=== PATIENT | male | born 1965 | race Caucasian/White ===

== ENCOUNTER → 2016-12-05 | Outpatient (CLI) | payer BC ==
[~2016-12-05] MED LIST: CETI-115 PO; CITA40TA6 PO; GABA-354 PO; HYDR25TA PO; IOHEXOL 300 MG/ML 100ml INJECTION ONE; METO25TA6 PO; NORMAL SALINE 100 ML ONE; ONDA4TAB4 PO; SALINE FLUSH 10ml SYRINGE ONE; TOPI25TA37 PO
--- NOTE | 2016-12-05 15:32 | DI ---
Indication: ITS.REASON: R19.00 Intra-abdominal and pelvic swelling, mass and lump, unspec PROCEDURE: CT ABD/PELVIS W/CONTRAST ONLY: Encounter: Initial Comparison: Renal CT dated March 02, 2016 Technique: Axial CT images were performed through the abdomen and pelvis after the administration of intravenous contrast. Coronal and sagittal two-dimensional reformats. Automated Exposure Control and Iterative Reconstruction dose reducing techniques were utilized. Contrast: Omnipaque 300 100 mL Findings: The lung bases show areas of atelectasis bilaterally. The liver appears normal. No bile duct dilatation. The gallbladder, spleen, pancreas and adrenal glands are within normal limits. The kidneys are normal. No abdominal or pelvic lymphadenopathy. The bladder is normal. Prostate and rectum are within normal limits. No free fluid or free air. Small and large bowel loops are normal. The appendix is normal. There is a rounded smoothly marginated low-attenuation lesion seen in the fundus of the stomach along the lesser curvature measuring 4 cm in diameter extending to the level of the GE junction. This has circumscribed margins and measures approximately 55 Hounsfield units in density. Remainder of the stomach appears thin walled and normal. Bone windows are normal for age. Impression: 4 cm smoothly marginated mass within the fundus of the stomach near the GE junction. This is consistent with a submucosal mass. Leading differential considerations are leiomyoma, GIST tumor and schwannoma. Further evaluation with endoscopic ultrasound may help to differentiate among the submucosal tumor possibilities. .
== END ==
LOC: IMA 13:05
PROVIDERS: ATTEND Surgery
DX: K31.89 Other diseases of stomach and duodenum (principal)
CPT/HCPCS: 74177; J7050; Q9967

== ENCOUNTER → 2017-01-26 | Outpatient (CLI) | payer BC ==
[~2017-01-26] MED LIST changes: -IOHEXOL 300 MG/ML 100ml INJECTION ONE; +IOHEXOL 300 MG/ML 75ml INJECTION ONE
--- NOTE | 2017-01-26 16:14 | DI ---
Indication: ITS.REASON: R51 GOMEZ; R19.00 Intra-abdominal and pelvic swelling, mass and lump CT CHEST W/CONTRAST: Comparison: None Technique: Patient scanned after 75 cc Omni 300 intravenous contrast utilized. Dose reduction imaging technologies used. Reformatted sagittal and coronal images are provided. Findings: No acute findings noted in the base of the neck. Imaging into the chest shows no pathologic adenopathy in the axillary, or mediastinal or hilar regions. The heart size is within normal limits. Imaging the upper abdomen showed no acute findings. Pulmonary parenchyma showed no focal parenchymal consolidations masses or effusions. Reformatted imaging of the thoracic spine shows no fractures or malalignments. Impression: 1. No acute cardiopulmonary findings. .
--- NOTE | 2017-01-31 09:00 | DI ---
Indication: ITS.REASON: R51 GOMEZ; R19.00 Intra-abdominal and pelvic swelling, mass and lump PROCEDURE: CT HEAD W/WO CONTRAST: Comparison: Brain MRI dated October 09, 2016 Technique: Axial CT images through the head were performed without and with IV contrast. Iterative Reconstruction dose reducing technique was utilized. Contrast: Omnipaque 300 75 mL FINDINGS: The ventricles are of normal size, shape, and contour for the patient's age. The brainstem, cerebellum, and cerebral hemispheres have a normal morphology and CT attenuation. No hemorrhage, mass effect, mass lesions, or edema is evident. No areas of abnormal enhancement are seen. The visualized portions of the skull base, sinuses, and calvarium demonstrate no abnormality. IMPRESSION: Unremarkable head CT for the patient's age, both before and after contrast. No evidence of intracranial metastatic disease. .
== END ==
LOC: IMA 12:07
PROVIDERS: ATTEND Internal Medicine Hematology & Oncology
DX: R19.00 Intra-abdominal and pelvic swelling, mass and lump, unspecified site (principal); R51 Headache
CPT/HCPCS: 70470; 71260; J7050; Q9967

== ENCOUNTER 2017-06-12 15:19 | Inpatient (IN) ==
[2017-06-12] MEDS ORDERED: HYDROMORPHONE 2 MG/ML INJECTION IVP ONE (21:18)
[2017-06-12] MEDS ORDERED: ONDANSETRON 4 MG/2 ML INJECTION IVP PRN (21:27)
[2017-06-12] MEDS: HYDROMORPHONE 2 MG/ML INJECTION IVP SCH ×2 (22:28→23:48)
[2017-06-12] MEDS: NS 1,000 ML IV SCH (22:37)
--- NOTE | 2017-06-13 01:32 | History & Physical Report ---
<Naveen Luz Terry - Last Filed: 06/13/17 01:28> History of Present Illness Date: 06/13/17 Chief complaint: right flank pain HPI: This is a 51y/o male with a history of chronic ureterolithiasis. The patient has had previous stones on his left side. More recently he had onset of abd pain and right flank pain. He has had ongoing CKD and had been admitted x 2 in his local hospital to manage his pain and to hopefully resolve his current stone problem. The patient had an USwhich demonstrated hydronephosis on the right without obvious stone. Because of ongoing pain and no resolution of his problem it was thought best to do a CT of his abdome to better understand. [facility] does not have a CT capability. Contact was made with [facility] and it was confrimed that the urology was available. They recommended a CTurogram with adn without iv contrast with delayed imaging. Currently the patient's cr is 1.8 and is not a candidate for iv contrast . WE will proceed with non contrast CT (CT renal stone protocol) and make further recommendations per urology. patient is npo in case there will be a procedure Review of Systems Review of systems: no headache, no change in vision, no sore throat, no neck pain, no chest pain, no cough, no congestion, no fever, chills or sweats, right sided abd/flank pain with nasuea, and dry heaves, patient had normal bowel movements and noblood in urine or stool. no skin rashed, no focal neuro complaints. 12 point ROS otherwise neg except for outlined above. PFSH Patient Stated Medical History Migraine Yes Hypertension hx of high bp prior to losing 50 pounds Sleep Apnea Yes Gastroesophageal Reflux Yes Disease Hx Urinary Tract Infection Yes Other Yes: skin cancer removed x3 Surgical History: cholecystectomy, gastric partial resection for tumor withesophageal reattachment, vasectomy skin cancer resection face x 3 Family History: brother with PTSD< COPD, mother DM, HTN, father HtN, COPPD - Social History Smoking status: Never smoker Substance use type: does not use Alcohol intake frequency: a few times a month Last drink: unknown Housing: house Household members: spouse, children Current occupational status: employed Medications Home Medications Medication Instructions Recorded Confirmed Type Cetirizine HCl [Zyrtec] 1 tab PO DAILY 06/12/17 06/12/17 History Dronabinol [Marinol] 5 mg PO BID 06/12/17 06/12/17 History Ferrous Sulfate [Ferrous Sulfate] 1 tab PO DAILY 06/12/17 06/12/17 History Gabapentin 2 cap PO TID 06/12/17 06/12/17 History Indomethacin 50 mg PO DAILY 06/12/17 06/12/17 History Megestrol Acetate [Megestrol 5 ml PO DAILY 06/12/17 06/12/17 History Acetate] Meloxicam [Mobic] 15 mg PO DAILY 06/12/17 06/12/17 History Mirtazapine [Remeron] 15 mg PO HS 06/12/17 06/12/17 History Multivitamin with Minerals [Men's 1 each PO DAILY 06/12/17 06/12/17 History One Daily] [place]-3 Fatty Acids/Fish Oil [Fish 1 each PO BID 06/12/17 06/12/17 History Oil 1,200 mg Softgel] Ondansetron Tab [Zofran Po] 4 mg PO TID 06/12/17 06/12/17 History Pantoprazole Tab [Protonix Tab] 1 tab PO ACB 06/12/17 06/12/17 History Potassium Chloride [K-Dur] 1 tab PO BID 06/12/17 06/12/17 History Sertraline HCl [Zoloft] 50 mg PO DAILY 06/12/17 06/12/17 History Sulfamethoxazole/Trimethoprim 2 each PO BID 06/12/17 06/12/17 History [Bactrim 400-80 mg Tablet] Topiramate [Topamax] 100 mg PO DAILY 06/12/17 06/12/17 History Allergies Allergy/AdvReac Type Severity Reaction Status Date / Time dog dander Allergy Verified 06/12/17 21:23 pollen extracts Allergy Verified 06/12/17 21:23 Exam Vital Signs: Temperature 97.8 F 06/12/17 23:41 Pulse Rate 60 06/12/17 23:41 Respiratory Rate 18 06/12/17 23:41 Blood Pressure 161/95 H 06/12/17 23:41 Pulse Oximetry 99 06/12/17 23:41 Height/Weight/BMI: Height 1.83 m Weight 97.4 kg Body Mass Index 29.1 - Constitutional Present: mild distress, well nourished, well developed, obese, cooperative - Routine HEENT Exam Head: Present: normocephalic, atraumatic Eye: Present: EOMI ENT: Present: mucous membranes dry - Routine Neck Exam Present: supple, full ROM - Routine Cardiovascular Exam Present: no murmur - Routine Abdominal Exam Present: soft Comments: mild tender to palpation per nursing right sided. bowel sounds are present - Routine Extremities Exam Present: no edema, full ROM - Routine Back/Spine/Pelvis Exam Back/Spine: Present: full ROM - Routine Skin Exam Present: intact - Routine Neurological Exam Present: alert - Routine Psychiatric Exam Present: normal affect Results - Labs CBC & Chem 7: 06/12/17 21:17 06/12/17 21:17 Labs: reviewed and appreciated Assessment and Plan (1) Ureterolithiasis Current visit: Yes Status: Acute 06/13/17 01:36 presumed ureterolithiasis acute POA: recurrent. US demosntrates obstructive uropathy. patients renal function worsening. npo, ivf, iv pain meds, repeat labs in the am. renal function would preclude CT contrast ureterograms. Will do non contrast CT to eval for stone or other obstructing processes Urology aware of patient and will see today (2) SATISH (acute kidney injury) Current visit: Yes Status: Acute 06/13/17 01:38 it will be assumed that the patient's current Cr reflects worsening status. ivf , repeat in the am. with possibility of obstructive uropathy this is concerning for a cause of this. DVT Prophylaxis: SCD's GI Prophylaxis: Protonix Hospital Course Summary Disclaimer: The visit summary below is not to be considered part of the above Progress Note. <Olimpia Maynard Last Filed: 06/13/17 15:26> History of Present Illness Date: 06/13/17 [facility] Patient Stated Medical History Migraine Yes Hypertension hx of high bp prior to losing 50 pounds Sleep Apnea Yes Gastroesophageal Reflux Yes Disease Hx Urinary Tract Infection Yes Other Yes: skin cancer removed x3 Exam Vital Signs: Temperature 97.8 F 06/13/17 11:58 Pulse Rate 77 06/13/17 11:58 Respiratory Rate 16 06/13/17 11:58 Blood Pressure 175/100 H 06/13/17 11:58 Pulse Oximetry 96 06/13/17 11:58 Height/Weight/BMI: Height 1.83 m Weight 96.162 kg Body Mass Index 28.7 Results - Labs CBC & Chem 7: 06/13/17 04:26 06/13/17 04:26 Assessment and Plan (1) Ureterolithiasis Current visit: Yes Status: Acute (2) SATISH (acute kidney injury) Current visit: Yes Status: Acute Assessment and Plan: Dr. Luz's note reviewed. Herve interviewed and examined. His provided supplemental history. CC: Flank pain/hydronephrosis HPI: Mr. 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 Since that time oral intake has been poor and his had recurrent hospitalizations for dehydration which is thought to be the cause of his nephrolithiasis. His is unsure if stone analysis is been done on prior hospitalizations. The patient has had 4 recent attacks of nephrolithiasis and has basically been in and out of the hospital spending more time in the hospital and out since March. He was most recently hospitalized on 06/10 in [place] for dehydration and recurrent flank pain with pain in the right flank/ RLQ/and testicle. Microscopic hematuria was noted and renal sonogram demonstrated right-sided hydronephrosis without clear evidence of stone. The patient reports that he did pass some stone fragments but had persistent pain. Was contacted by Dr. Wilson yesterday requesting transferred to [place] to permit CT imaging and urology evaluation. Patient's creatinine prior to transfer was 1.8. Patient's additionally reports that patient has had psychiatric assessment for eating disorder in recent months and that he may taken no more than 4-6 ounces of fluid a day and that efforts to increase fluid intake lead to repetitive dry heaves or vomiting. 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 Luz with additions of chronic vertigo and poor oral intake. Significant weight loss reported over past 6 months. EXAM: General-NAD, monotone voice but responds to questions appropriately HEENT-PERRL, EOMI without nystagmus, conjunctiva clear, sclera anicteric, conjugate gaze, facial structures symmetric, oropharynx clear, neck supple and without adenopathy Lungs-respirations nonlabored, good airflow, breath sounds clear Cardiac-regular rhythm, S1-S2 Abd-soft, nontender except to deep palpation in the right lower quadrant, no guarding, bowel sounds diminished Ext-without edema Skin-without rash or evidence of wounds Neuro-cranial nerves 3-12 intact, sensation intact 4 extremities, MAEW Psych-flat affect DATA: Hemoglobin 10.1, creatinine 1.8 on admission, 1.7 today, bilirubin 1.5, remainder of liver enzymes unremarkable. Renal CT without contrast reviewed by myself revealing fatty infiltration in the liver, postoperative changes in the stomach, no abnormalities of the left kidney, mild/mod right-sided hydronephrosis and a 3 mm obstructing stone in the distal right ureter A/P: Recurrent nephrolithiasis Right UVJ stone Acute kidney injury Right hydronephrosis Depression Recurrent dehydration Anorexia Hypertension Normocytic anemia GERD History GIST tumor Continue IV fluids, pain management, and antiemetics. Case discussed with Dr. Mao. Stone is small and should pass spontaneously however surgery is tentatively scheduled tomorrow if stone does not pass given chronicity of patient's current symptoms. Continue straining urine-if stone retrieved will sent for stone analysis in the event medication can be utilized to prevent recurrent stones. Bigger issue is prevention of recurrent stones which have evolved since surgery in March. Increased fluid intake is needed but patient finds it impossible to maintain fluid intake currently. Further psychiatric consultation discussed or alternately surgical consultation to determine if he has a candidate for G-tube or J-tube placement. The patient and his considering options. Continue current antidepressant regimen. Patient reports he has not been using Megace or Marinol due to intolerance of medications. I've recommended that he discontinue meloxicam as he is taking indomethacin daily. Based on medication review it appears patient is using most medications inconsistently and that he is also taking a fiber supplement intermittently, Carafate 4 times a day, and Reglan 4 times a day for nausea. Hospital Course Summary Disclaimer: The visit summary below is not to be considered part of the above Progress Note.
[2017-06-13] MEDS: HYDROMORPHONE 2 MG/ML INJECTION IVP SCH ×3 (01:37→05:51)
[2017-06-13] MEDS: HYDROMORPHONE 2 MG/ML INJECTION IVP PRN ×5 (08:08→22:16)
[2017-06-13] MEDS: NS 1,000 ML IV SCH ×2 (08:54→19:08)
[2017-06-13 11:00] VITALS: BMI 28.7
--- NOTE | 2017-06-13 11:17 | CT Scan Report ---
Indication: hematuria PROCEDURE: CT renal wo con (stone madelaine): Encounter: Initial Comparison: None Technique: Axial CT images were performed through the abdomen and pelvis without intravenous contrast. Coronal and sagittal two-dimensional reformats. Automated Exposure Control and Iterative Reconstruction dose reducing techniques were utilized. Findings: Trace left and small right pleural effusions. The unenhanced contours of the liver show fatty infiltration. There is postoperative change in the area of the stomach with areas of induration and fat necrosis seen in the central mesentery and omentum that could be chronic. Recommend correlation with date of patient's prior surgery. The spleen with accessory splenules is unremarkable. The pancreas and adrenal glands are within normal limits. Left kidney is normal. No left-sided renal or ureteral stone. Right kidney has moderate hydronephrosis and mild hydroureter due to an obstructing 3 mm stone in the intramural portion of the ureter at the bladder. Bladder is otherwise normal. Prostate and rectum are unremarkable. No free fluid or evidence of a bowel obstruction. Mild left colonic diverticulosis without diverticulitis. The appendix is normal in a retrocecal location. Bone windows are normal for age. Impression: 1. Obstructing 3 mm right distal ureteral stone. 2. Small pleural effusions. .
--- NOTE | 2017-06-13 12:50 | Urology Consult Note ---
Urology HPI - Data of Consult Consult date: 06/13/17 Requesting Physician: Olimpia Maynard MD - Consult Narrative Reason for consult: R ureteral stone History of present illness: 51M h/o R flank pain radiating to his R testicle that started 20 days ago. This has required multiple visits to the ER. He was admitted to a hospital in [place] for pain control and transferred last night to [facility]. CT done showed a 3mm R UVJ stone. Of note, melissa has a long h/o kidney stones. Did not require surgery in the past. 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 Review of Systems All systems: reviewed and no additional remarkable complaints except as stated PFSH Patient Stated Medical History Migraine Yes Hypertension hx of high bp prior to losing 50 pounds Sleep Apnea Yes Gastroesophageal Reflux Yes Disease Hx Urinary Tract Infection Yes Other Yes: skin cancer removed x3 Surgical History: cholecystectomy, gastric partial resection for tumor withesophageal reattachment, vasectomy skin cancer resection face x 3 - Social History Smoking status: Never smoker Medications Home Medications Medication Instructions Recorded Confirmed Type Cetirizine HCl [Zyrtec] 1 tab PO DAILY 06/12/17 06/12/17 History Dronabinol [Marinol] 5 mg PO BID 06/12/17 06/12/17 History Ferrous Sulfate [Ferrous Sulfate] 1 tab PO DAILY 06/12/17 06/12/17 History Gabapentin 2 cap PO TID 06/12/17 06/12/17 History Indomethacin 50 mg PO DAILY 06/12/17 06/12/17 History Megestrol Acetate [Megestrol 5 ml PO DAILY 06/12/17 06/12/17 History Acetate] Meloxicam [Mobic] 15 mg PO DAILY 06/12/17 06/12/17 History Mirtazapine [Remeron] 15 mg PO HS 06/12/17 06/12/17 History Multivitamin with Minerals [Men's 1 each PO DAILY 06/12/17 06/12/17 History One Daily] [place]-3 Fatty Acids/Fish Oil [Fish 1 each PO BID 06/12/17 06/12/17 History Oil 1,200 mg Softgel] Ondansetron Tab [Zofran Po] 4 mg PO TID 06/12/17 06/12/17 History Pantoprazole Tab [Protonix Tab] 1 tab PO ACB 06/12/17 06/12/17 History Potassium Chloride [K-Dur] 1 tab PO BID 06/12/17 06/12/17 History Sertraline HCl [Zoloft] 50 mg PO DAILY 06/12/17 06/12/17 History Sulfamethoxazole/Trimethoprim 2 each PO BID 06/12/17 06/12/17 History [Bactrim 400-80 mg Tablet] Topiramate [Topamax] 100 mg PO DAILY 06/12/17 06/12/17 History Allergies Allergy/AdvReac Type Severity Reaction Status Date / Time dog dander Allergy Verified 06/12/17 21:23 pollen extracts Allergy Verified 06/12/17 21:23 Urology Results - Labs CBC & Chem 7: 06/13/17 04:26 06/13/17 04:26 Labs: Short CBC 06/12/17 06/13/17 Range/Units 21:17 04:26 WBC 5.1 4.6 (4.5-11.0) T/MM3 Hgb 10.2 L 10.1 L (13.5-17.5) GM/DL Hct 30.7 L 30.5 L (41-53) % Plt Count 154 153 (130-400) T/MM3 BMP 06/12/17 06/13/17 21:17 04:26 Sodium 144 143 Potassium 3.7 3.9 Chloride 114 H 113 H Carbon Dioxide 19 L 23 BUN 10.0 9.0 Creatinine 1.8 H 1.7 H Glucose 85 80 Calcium 8.2 L 8.3 L Liver Function 06/13/17 Range/Units 04:26 Total Bilirubin 1.50 H (0.20-1.30) MG/DL AST 13 L (17-59) U/L ALT 30 (21-72) U/L Alkaline Phosphatase 89 (38-126) U/L Albumin 2.7 L (3.5-5.0) G/DL Urology Exam Vital signs: Temperature 97.8 F 06/13/17 11:58 Pulse Rate 77 06/13/17 11:58 Respiratory Rate 16 06/13/17 11:58 Blood Pressure 175/100 H 06/13/17 11:58 Pulse Oximetry 96 06/13/17 11:58 - Constitutional no acute distress - HEENT Exam Head: Present: normocephalic Eye: Present: EOMI - Respiratory Exam Absent: respiratory distress - Cardiovascular Exam Present: RRR - Abdominal/Groin Exam Present: soft Groin: Present: tenderness (R CVA tenderness) - Exam Penile: Absent: swelling, erythema, lesions Scrotal: Absent: swelling, tenderness, erythema Assessment and Plan 3mm R UVJ stone Multiple ER visits last 2 weeks. Plan: - d/w patient high chances of spontaneous passage with MET based on size and location of the stone. However, patient has been on MET for 2 weeks and has had multiple visits to the ER for the pain. He elects for surgical intervention. d/ w pt risks of URS including infection, bleeding and ureteral injury. Also explained the need for JJ stent . Patient wishes to proceed. - will schedule R URS + stone basketing tomorrow pm - strain urine. Will cancel case if patient passes the stone. Hospital Course Summary Disclaimer: The visit summary below is not to be considered part of the above Progress Note.
[2017-06-13] MEDS ORDERED: Oxycodone/Apap 10/325 1 TAB PO PRN (15:29)
[2017-06-13] MEDS: MIRTAZAPINE 15 MG TABLET PO SCH (21:35)
[2017-06-13] MEDS: GABAPENTIN 300 MG CAPSULE PO SCH (21:36)
[2017-06-13] MEDS: ONDANSETRON 4 MG TABLET PO SCH (21:36)
[2017-06-13] MEDS: SULFAMETHOXAZOLE/TMP 800 MG/160 MG DS TABLET PO SCH (22:12)
[2017-06-14] MEDS: NS 1,000 ML IV SCH ×3 (05:23→18:00)
[2017-06-14] MEDS: PANTOPRAZOLE 40 MG TABLET PO SCH (05:46)
[2017-06-14] MEDS: MULTI-VITAMIN + MINERAL TABLET PO SCH (09:27)
[2017-06-14] MEDS: SULFAMETHOXAZOLE/TMP 800 MG/160 MG DS TABLET PO SCH (09:27)
[2017-06-14] MEDS: CETIRIZINE 10 MG TABLET PO SCH (09:28)
[2017-06-14] MEDS: HYDROMORPHONE 2 MG/ML INJECTION IVP PRN (09:52)
[2017-06-14] MEDS: ONDANSETRON 4 MG TABLET PO SCH ×3 (09:55→20:54)
[2017-06-14] MEDS: SERTRALINE 50 MG TABLET PO SCH (09:55)
[2017-06-14] MEDS: TOPIRAMATE 100 MG TABLET PO SCH (09:55)
[2017-06-14] MEDS: GABAPENTIN 300 MG CAPSULE PO SCH ×3 (09:55→20:54)
[2017-06-14] MEDS ORDERED: IOHEXOL 300mg/ml 50ml INJECTION ONE (12:36)
[2017-06-14] MEDS ORDERED: LIDOCAINE 2% JELLY (Urojet) 20ml MM ONE ×2 (12:39→13:22)
--- NOTE | 2017-06-14 12:51 | Anesthesia Preoperative Report ---
Anesthesia Preoperative Record - Date and Time Date: 06/14/17 Preoperative Diagnosis: Hydronephrosis Proposed Procedure: Cysto ureteroscopy, stone retrieval NPO Since Date: 06/14/17 NPO Since Time: 00:00 Allergies/Adverse Reactions: Allergies Allergy/AdvReac Type Severity Reaction Status Date / Time dog dander Allergy Verified 06/12/17 21:23 pollen extracts Allergy Verified 06/12/17 21:23 - Vital Signs Vital Signs: Temperature 98.1 F 06/14/17 12:30 Pulse Rate 58 L 06/14/17 12:30 Respiratory Rate 16 06/14/17 12:30 Blood Pressure 184/97 H 06/14/17 12:30 Pulse Oximetry 99 06/14/17 12:30 Height and Weight: Height 6 ft Weight 96.162 kg Body Mass Index 28.7 - Medications Inpatient Medications: Current Medications Cetirizine HCl (Zyrtec) 10 mg PO DAILY [facility] Last Admin: 06/14/17 09:28 Dose: Not Given Gabapentin (Neurontin) 600 mg PO TID [facility] Last Admin: 06/14/17 09:55 Dose: 600 mg Hydromorphone HCl (Dilaudid) 0.5 - 1 mg IVP Q2H PRN Last Admin: 06/14/17 09:52 Dose: 0.5 mg Sodium Chloride (Normal Saline) 1,000 mls @ 100 mls/hr IV .Q10H [facility] Last Admin: 06/14/17 05:23 Dose: 100 mls/hr Mirtazapine (Remeron) 15 mg PO HS [facility] Last Admin: 06/13/17 21:35 Dose: 15 mg Multivitamins/Minerals (Therapeutic - M) 1 tab PO DAILY [facility] Last Admin: 06/14/17 09:27 Dose: Not Given Ondansetron HCl (Zofran) 4 mg IVP Q6H PRN PRN Reason: Nausea &/or vomiting Ondansetron HCl (Zofran Po) 4 mg PO TID [facility] Last Admin: 06/14/17 09:55 Dose: 4 mg Oxycodone/Acetaminophen (Percocet 10/325) 1 tab PO Q4H PRN PRN Reason: Pain Last Admin: 06/13/17 15:34 Dose: 1 tab Pantoprazole Sodium (Protonix Tab) 40 mg PO ACB [facility] Last Admin: 06/14/17 05:46 Dose: Not Given Sertraline HCl (Zoloft) 50 mg PO DAILY [facility] Last Admin: 06/14/17 09:55 Dose: 50 mg Topiramate (Topamax) 100 mg PO DAILY [facility] Last Admin: 06/14/17 09:55 Dose: 100 mg Trimethoprim/Sulfamethoxazole (Bactrim Ds) 1 tab PO BID [facility] Last Admin: 06/14/17 09:27 Dose: Not Given Home Medications: Home Medications Medication Instructions Recorded Confirmed Type Cetirizine HCl [Zyrtec] 1 tab PO HS #0 tab 11/27/16 History Gabapentin 1 tab PO DAILY #0 cap 11/27/16 History Metoprolol Tartrate 1 tab PO BID #60 11/27/16 History Ondansetron HCl [Zofran] 4 mg PO Q6H PRN #0 tab 11/27/16 History Topiramate [Topamax] 25 mg PO DAILY #0 tab 11/27/16 History hydroCHLOROthiazide 1 tab PO BID #0 tab 11/27/16 History [Hydrochlorothiazide] Citalopram Hydrobromide 60 tab PO DAILY #0 tab 11/28/16 History [Citalopram HBr] Cetirizine HCl [Zyrtec] 1 tab PO DAILY 06/12/17 06/12/17 History Dronabinol [Marinol] 5 mg PO BID 06/12/17 06/12/17 History Ferrous Sulfate [Ferrous Sulfate] 1 tab PO DAILY 06/12/17 06/12/17 History Gabapentin 2 cap PO TID 06/12/17 06/12/17 History Indomethacin 50 mg PO DAILY 06/12/17 06/12/17 History Megestrol Acetate [Megestrol 5 ml PO DAILY 06/12/17 06/12/17 History Acetate] Meloxicam [Mobic] 15 mg PO DAILY 06/12/17 06/12/17 History Mirtazapine [Remeron] 15 mg PO HS 06/12/17 06/12/17 History Multivitamin with Minerals [Men's 1 each PO DAILY 06/12/17 06/12/17 History One Daily] [place]-3 Fatty Acids/Fish Oil [Fish 1 each PO BID 06/12/17 06/12/17 History Oil 1,200 mg Softgel] Ondansetron Tab [Zofran Po] 4 mg PO TID 06/12/17 06/12/17 History Pantoprazole Tab [Protonix Tab] 1 tab PO ACB 06/12/17 06/12/17 History Potassium Chloride [K-Dur] 1 tab PO BID 06/12/17 06/12/17 History Sertraline HCl [Zoloft] 50 mg PO DAILY 06/12/17 06/12/17 History Sulfamethoxazole/Trimethoprim 2 each PO BID 06/12/17 06/12/17 History [Bactrim 400-80 mg Tablet] Topiramate [Topamax] 100 mg PO DAILY 06/12/17 06/12/17 History Is Patient on Beta Gautam?: Yes - Medical History Respiratory: DENIES: Asthma, Bronchitis, Chronic Obstructive Pulmonary Disease (COPD), Dyspnea, Orthopnea, Pulmonary Embolism, Pneumonia, Upper Respiratory Infection, Pulmonary Edema, Sleep Apnea, Tuberculosis, Other Cardiovascular: Reports: Hypertension Gastrointestional: Reports: Gastroesophageal Reflux Disease (poorly controlled) Neuro/Musculoskeletal: Reports: Depression, Muscle Weakness, Paresthesia (loss of sensation to back of head. ), Other (mood/personality changes after last surgery. vertigo) Renal/Endocrine: Reports: Weight Loss, Other (severe anorexia) Other History: Reports: Anesthesia Reactions (questionable mood/personality changes after last anesthetic) - Surgical History GI Surgery/Treatments: Reports: Other (tumor on stomach removed 03/22/16) Reproductive Surgery/Treatment: Reports: Vasectomy Anesthesia Reactions: Other (see above) - Social History Smoking Status: Never smoker Substance Use Type: does not use - Pertinent Findings Laboratory: CBC and BMP 06/13/17 04:26 06/14/17 10:06 BMP 06/14/17 10:06 Sodium 143 Potassium 4.0 Chloride 113 H Carbon Dioxide 22 BUN 9.0 Creatinine 1.4 D Glucose 82 Calcium 8.6 Liver Function 06/14/17 Range/Units 10:06 Albumin 2.9 L (3.5-5.0) G/DL Urine 06/14/17 Range/Units 10:58 Urine Color Yellow (YELLOW) Urine Clarity Sl cloudy Urine pH 6.0 (5.0-8.0) Ur Specific [place] 1.010 L (1.015-1.025) Urine Protein Negative (NEGATIVE) Urine Glucose (UA) Negative (NEGATIVE) EKG: Sinus Rhythm - Physical Exam Respiratory Exam: Present: lungs clear, bilateral breath sounds equal Cardiovascular Exam: Present: regular rate and rhythm, no murmur - Airway Assessment Mallampati Score: III TMD: 3 Fingerbreadths Neck Extension: fair Overall Assessment: may be difficult intubation (small mouth opening. thick neck ) - ASA ASA Score: 3 - Plan Anesthesia: General TIVA - Discussion Discussion: Discussed risks/options/alternatives of anesthesia and questions answered. Patient consents. Nursing pain assessment noted. Present for Discussion: family member Attestation Statement: Prior to the delivery of any anesthetic medication, I examined the patient, developed the plan, obtained the patient's consent and discussed the risk and benefits of the procedure with the patient/guardian. - Additional Information Seen by Anesthesia: Yes
[2017-06-14] MEDS ORDERED: CEFAZOLIN 1 G INJECTION IVP ONE (13:22)
[2017-06-14] MEDS ORDERED: IOHEXOL 300mg/ml 50ml INJECTION OPSITE ONE (13:22)
[2017-06-14] MEDS ORDERED: CEFAZOLIN 1 G INJECTION ONE (13:28)
[2017-06-14] MEDS ORDERED: KETOROLAC 30 MG/ML INJECTION ONE (13:31)
[2017-06-14] MEDS ORDERED: ONDANSETRON 4 MG/2 ML INJECTION ONE (13:35)
[2017-06-14] MEDS ORDERED: DiphenhydrAMINE 50 MG/ML INJECTION ONE (13:35)
[2017-06-14] MEDS ORDERED: PROPOFOL 20 ML ONE (13:36)
[2017-06-14] MEDS ORDERED: ROCURONIUM 50 MG/5 ML INJECTION IVP ONE (13:36)
[2017-06-14] MEDS ORDERED: PROPOFOL 500 MG/50 ML VIAL IV ONE (13:36)
[2017-06-14] MEDS ORDERED: SUCCINYLCHOLINE 20mg/mL 10mL INJECTION ONE (13:36)
--- NOTE | 2017-06-14 14:03 | Anesthesia Postoperative Note ---
- Date and Time Date: 06/14/17 Time: 14:02 - Status Patient Participated in Evaluation: Patient Participated in Person Vital Signs: Temperature 98.5 F 06/14/17 13:43 Pulse Rate 74 06/14/17 13:50 Respiratory Rate 16 06/14/17 13:50 Blood Pressure 140/92 H 06/14/17 13:50 Pulse Oximetry 97 06/14/17 13:50 Respiratory Function: Airway Patent Cardiovascular Function: Regular Pulse EKG: Sinus Rhythm Mental Status: Alert and Oriented Hydration: Taking PO Fluids Complications During Recover: None Apparent - Follow-Up Instructions Instructions: Per Surgeon
--- NOTE | 2017-06-14 14:13 | Remote Fluorsocopy Report ---
Indication: RIGHT RETROGRADE PROCEDURE: RF retrograde pyelogram RT: Encounter: Initial Comparison: None Findings: Three fluoroscopic spot images are submitted for interpretation. Images show retrograde injection of contrast into the right ureter via a cystoscope. There is minimal opacification of the right renal calyces. Impression: Fluoroscopy as above. Fluoroscopy time is 9.2 seconds. Fluoroscopy dose is 256.4 mRad. .
--- NOTE | 2017-06-14 15:42 | Progress Note ---
Subjective: Herve was seen prior to surgery. He reported continued pain in his right lower quadrant/right flank and hematuria. He is currently nothing by mouth but reported no difficulty with food intake yesterday. Nursing report virtually no intake of liquids with only 150 mL liquids taken orally. She reports some minor lightheadedness when he is up to the bathroom and nausea without vomiting but denied dyspnea. Objective Vital signs: Temperature 97.1 F 06/14/17 14:35 Pulse Rate 57 L 06/14/17 15:17 Respiratory Rate 10 06/14/17 15:17 Blood Pressure 152/92 H 06/14/17 15:17 Pulse Oximetry 97 06/14/17 15:17 I/O 3150/2325 EXAM General-NAD, alert HEENT-conjunctiva clear Lungs-respirations nonlabored, breath sounds clear, good airflow Cardiac-regular rhythm Abd-abdomen soft with minimal tenderness on deep palpation right lower quadrant , bowel sounds present Ext-without edema Neuro-MAEW Psych-flat affect - Height/Weight/BMI: Height 1.83 m Weight 95 kg Body Mass Index 28.7 Results - Labs CBC & Chem 7: 06/13/17 04:26 06/14/17 10:06 Labs: Magnesium 1.4, phosphorus 3.2, albumin 2.9 UA specific gravity 1.010, +3 blood, 30-50 RBC, no WBC Assessment and Plan (1) Ureterolithiasis Current visit: Yes Status: Acute (2) SATISH (acute kidney injury) Current visit: Yes Status: Acute DVT Prophylaxis: SCD's Resuscitation Status: Full Code Assessment and Plan: Assessment: Recurrent nephrolithiasis Right UVJ stone Acute kidney injury Right hydronephrosis Depression Recurrent dehydration Anorexia Hypertension Normocytic anemia GERD History GIST tumor Plan: Continue IV fluids. Patient to the operating room for stone retrieval today and possible stent placement. Again discussed need to improve oral intake of liquids to minimize risk of recurrent stones. Initially patient declined interventions but later his requested surgical consultation. Discussed with Dr. Garcias will see patient in consultation to determine if consideration of feeding tube of some form is appropriate consideration. Patient again declined psychiatric consultation. No suggestion of urine infection. Blood pressure variable, would likely benefit from addition of antihypertensive at low dose. Will discuss with patient and -given intolerance of oral medications I'm reluctant to add to patient's pill burden currently. Discussed with Dr. Wilson-reported recent treatment with Bactrim and Diflucan empirically-does not need to continue either. He agreed with surgical consultation and felt patient would benefit from further psychiatric evaluation if agreeable. Would like PICC line to remain in at discharge. Retrograde images of the right ureter reviewed by myself-radiology additionally reports poor opacification of the right renal calyx. Call placed to Dr. Dr. Mao. Hospital Course Summary Disclaimer: The visit summary below is not to be considered part of the above Progress Note. Hospital Course: 06/12- Patient transferred from [place] due to persistent pain attributed to nephrolithiasis for CT imaging and urology consultation. Continue IV fluids, pain management, and antiemetics. Case discussed with Dr. Mao. 3 mm distal UVJ stone on CT and should pass spontaneously however surgery is tentatively scheduled tomorrow if stone does not pass given chronicity of patient's current symptoms. Continue straining urine-if stone retrieved will sent for stone analysis in the event medication can be utilized to prevent recurrent stones. Bigger issue is prevention of recurrent stones which have evolved since surgery in March. Increased fluid intake is needed but patient finds it impossible to maintain fluid intake currently. Further psychiatric consultation discussed or alternately surgical consultation to determine if he has a candidate for G-tube or J-tube placement. The patient and his considering options. Continue current antidepressant regimen. Patient reports he has not been using Megace or Marinol due to intolerance of medications. I've recommended that he discontinue meloxicam as he is taking indomethacin daily. Based on medication review it appears patient is using most medications inconsistently and that he is also taking a fiber supplement intermittently, Carafate 4 times a day, and Reglan 4 times a day for nausea. 06/14/17 Continue IV fluids. Patient to the operating room for stone retrieval today and possible stent placement. Again discussed need to improve oral intake of liquids to minimize risk of recurrent stones. Initially patient declined interventions but later his requested surgical consultation. Discussed with Dr. Garcias will see patient in consultation to determine if consideration of feeding tube of some form is appropriate consideration. Patient again declined psychiatric consultation. No suggestion of urine infection. Blood pressure variable, would likely benefit from addition of antihypertensive at low dose. Will discuss with patient and -given intolerance of oral medications I'm reluctant to add to patient's pill burden currently. Discussed with Dr. Wilson-reported recent treatment with Bactrim and Diflucan empirically-does not need to continue either. He agreed with surgical consultation and felt patient would benefit from further psychiatric evaluation if agreeable. Would like PICC line to remain in at discharge. Retrograde images of the right ureter reviewed by myself-radiology additionally reports poor opacification of the right renal calyx. Call placed to Dr. Dr. Mao.
[2017-06-14] MEDS ORDERED: ACETAMINOPHEN 325 MG TABLET PO PRN (20:34)
[2017-06-14] MEDS: MIRTAZAPINE 15 MG TABLET PO SCH (20:54)
[2017-06-15 00:23] VITALS: RESP 16
[2017-06-15] MEDS: NS 1,000 ML IV SCH ×3 (05:01→10:43)
[2017-06-15] MEDS: PANTOPRAZOLE 40 MG TABLET PO SCH (06:08)
[2017-06-15 07:30] VITALS: BP 138/82; PULSE 63; TEMP 97.4; O2SAT 97
--- NOTE | 2017-06-15 07:47 | Consultation ---
DATE OF CONSULTATION 06/14/2017 HISTORY OF PRESENT ILLNESS This patient is 51 years old. This patient underwent an exploratory laparotomy , proximal gastrectomy, distal esophagectomy, truncal vagotomy, Heineke- Mikulicz pyloroplasty and cholecystectomy on 03/22/[address] Nahomy Cuellar at [facility] at [place], [place]. Postoperative diagnosis was proximal gastric tumor. 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 There was no evidence of any malignant transformation. All regional lymph nodes were benign. Pathology report diagnosis on the gallbladder was mild chronic cholecystitis. The patient was hospitalized at [facility] from 03/22/2017 to 03/29/2017. The patient did undergo a Gastrografin upper GI x- ray series on 03/27/2017 during this hospitalization. The imaging study on 07/2017 did show postoperative changes at the stomach with no evidence of any obstruction. The contrast material did pass down into the duodenum without obstruction. The patient was admitted to [facility] on 06/13/2017 for management of a right ureterovesical junction kidney stone which was producing right hydronephrosis and right flank pain. A history was obtained at the time of admission that this patient had been experiencing recurrent nephrolithiasis since the operation in March 2017. The history was obtained at this time that the patient had been experiencing poor oral intake since the March 2017 operation with recurrent hospitalizations for treatment of dehydration. The recurrent dehydration was thought to be the cause for the recurrent nephrolithiasis. There was a history the patient experienced four episodes of nephrolithiasis and had been in and out of the hospital, spending more time in the hospital than out of the hospital since March 2017. The patient had been able to pass all these previous kidney and ureteral stones without an operation. The of the patient did report to Dr. Maynard that the patient had undergone at least two psychiatric assessments in recent months for an eating disorder. The patient had anorexia and poor oral intake. The patient was drinking no more than 4-6 ounces of fluid a day. If the patient would try to increase his fluid intake more than this he would experience repetitive dry heaves and vomiting. Increased oral intake was needed for the patient, but the patient did find it impossible to maintain good fluid intake. Dr. Myanard did discuss options of further psychiatric evaluation with the patient or possible surgical consultation to see if he is a candidate for placement of a feeding tube. Dr. Maynard again discussed the need to improve oral intake of liquids with the patient and his on 06/14/2017. The patient needs to improve his oral intake of liquids to minimize his risk for development of recurrent kidney stones. The of the patient did request surgical consultation. The patient again declined psychiatric consultation. Dr. Maynard did discuss the case with Dr. Alfa Wilson on 06/14/2017. Dr. Alfa Wilson is the primary care physician for the patient. Dr. Wilson agreed with surgical consultation and felt that the patient would benefit from further psychiatric evaluation, if agreeable. The patient states that he has had difficulty maintaining good oral intake since his operation in March 2017. He states that he believes that his intake of solid foods has been gradually and steadily improving since the operation in March 2017, but states that his intake of oral liquids is not improving. He states that he just does not feel like drinking anything. He states that he experiences a burning sensation at the abdomen when he does drink. He believes that his intake of solid foods is improving but states he has had difficulty improving his intake of liquids. The patient states that he has been hospitalized at [facility] three times since his original hospitalization in March 2017. Review of records from [facility] shows that the patient did undergo an upper GI x-ray series with small bowel follow-through on 04/14/2017 which showed no obstructive process. The Gastrografin which the patient swallowed at that time was able to reach the colon in 30 minutes. The patient states he was told at one of these three hospitalizations at [facility] that he had dumping syndrome. The patient states that he was told by Dr. Nahomy Cuellar at one of the subsequent hospitalizations at [facility] that if he was hospitalized there one more time he would have placement of a feeding tube to solve this problem. The patient was hospitalized to the service of Dr. Nahomy Cuellar each of the three times that he was hospitalized at [facility] since the original operation. PAST MEDICAL HISTORY Previous operations and procedures: 1. Vasectomy [address]ally Page at [place], [place]. 2. Removal of skin lesion at face in [address] Galloway at [place], [place]. 3. Esophagogastroduodenoscopy with biopsies and total colonoscopy with polypectomy and biopsies on 11/28/[address] Garcias at [facility] at [place], [place]. The patient did have a positive family history of colon carcinoma. The patient was found to have some colonic diverticulosis at this procedure. The patient did have two tubular adenoma colon polyps removed at total colonoscopy with polypectomy. KEITH test study at esophagogastroduodenoscopy was negative. The patient did appear to have a submucosal mass at the superior aspect of the stomach found at this esophagogastroduodenoscopy procedure. 4. Esophagogastroduodenoscopy with endoscopic ultrasound examination and ultrasound-guided fine needle aspiration biopsy of large submucosal gastric mass on 01/09/[address] Saturnino Sanford at [facility] at [place], [place]. Pathology report diagnosis on the fine needle aspiration biopsy was spindle cells present with immunoprofile consistent with smooth muscle cells. 5. Esophagogastroduodenoscopy with biopsies and tattoo of gastric mass on 02/[address] Rito Han at [facility] at [place], [place]. Postoperative diagnosis was gastric mass. Biopsies of a small gastric polyp were performed. Pathology report diagnosis on the biopsies was benign fundic gland polyp. The margins of the gastric mass were tattooed at proximal, medial and lateral margins. The mass did appear to extend all the way up to the Z- line. 6. Exploratory laparotomy, proximal gastrectomy, distal esophagectomy, truncal vagotomy, Heineke-Mikulicz pyloroplasty and cholecystectomy on 03/22/[address] Nahomy Cuellar at [facility] at [place], [place]. Postoperative diagnosis was proximal gastric tumor. 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 There was no evidence of any malignant transformation. All regional lymph nodes were benign. Pathology report diagnosis on the gallbladder was mild chronic cholecystitis. 7. Cystoscopy with removal of stone from the bladder and right retrograde pyelogram on 06/14/[address] Mao at [facility] at [place], [place]. Postoperative diagnosis was stone in the bladder. PHYSICAL EXAMINATION VITAL SIGNS: Pulse is 65. Respiratory rate is 146/89. Oxygen saturation is 97% on room air. Height is 1.83 meters. Weight is 95 kg. BMI is 28.4 kg/m2. ABDOMEN: The abdomen is soft and nontender. There are no abdominal masses. The patient does have an old vertical midline upper abdominal incision scar. IMAGING DATA This patient did undergo an upper GI x-ray with small bowel follow-through x- ray series on 04/14/2017 at [facility] at [place], [place]. This did not show any obstructive process in the gastrointestinal tract. Gastrografin contrast was able to reach the colon by 30 minutes after administration. The contrast did flow from the stomach into the small bowel loops without any obstructive process visualized. IMPRESSION 1. Status post exploratory laparotomy, proximal gastrectomy, distal esophagectomy, truncal vagotomy, Heineke-Mikulicz pyloroplasty and cholecystectomy on 03/22/2017. 2. Anorexia and poor oral intake since the operation on 03/22/2017. 3. Recurrent dehydration and recurrent nephrolithiasis since 03/22/2017. RECOMMENDATIONS 1. Since the right ureterovesical junction stone problem which led to this hospitalization at [facility] is now resolved, I think the patient could be dismissed from [facility] tomorrow. 2. I can follow up with Dr. Alfa Wilson who is the primary care physician of this patient and Dr. Nahomy Cuellar regarding further management of the anorexia and poor oral intake and try to coordinate care with these two physicians. I think that this is a chronic problem that does not have to be immediately solved during this hospitalization I would like to know what plan Dr. Nahomy Cuellar may already have in place for solving this problem before trying to proceed to solve this on my own. The patient may ultimately need placement of a feeding jejunostomy tube. [facility]
[2017-06-15] MEDS: TOPIRAMATE 100 MG TABLET PO SCH (08:49)
[2017-06-15] MEDS: CETIRIZINE 10 MG TABLET PO SCH (08:49)
[2017-06-15] MEDS: GABAPENTIN 300 MG CAPSULE PO SCH (08:49)
[2017-06-15] MEDS: ONDANSETRON 4 MG TABLET PO SCH (08:50)
[2017-06-15] MEDS: SERTRALINE 50 MG TABLET PO SCH (08:50)
[2017-06-15] MEDS: MULTI-VITAMIN + MINERAL TABLET PO SCH (08:50)
--- NOTE | 2017-06-15 10:39 | Operative Note ---
DATE OF PROCEDURE 06/14/2017 PREOPERATIVE DIAGNOSIS Right distal ureteral stone. POSTOPERATIVE DIAGNOSIS Stone in the bladder. PROCEDURE PERFORMED 1. Cystoscopy with removal of stone from the bladder. 2. Right retrograde pyelogram. PRIMARY SURGEON Liam Mao MD COMPLICATIONS None DRAINS None SPECIMEN REMOVED Stone for analysis. INDICATIONS FOR THE PROCEDURE This is a 51-year-old male who was admitted to the hospital for a two-week history of severe right flank pain. CT scan showed a 2-3 mm right UVJ stone. Patient was counseled on medical expulsive therapy however, he wished to proceed with intervention due to the fact that he has been having pain for two weeks. RADIOLOGIC FINDINGS Right retrograde pyelogram was negative for filling defects and for hydronephrosis. DESCRIPTION OF THE PROCEDURE Patient was identified in the preoperative holding area. The procedure was explained to him and he agreed to proceed. He was taken back to the operating room where he was placed supine on the operating table. General anesthesia was induced. He was then placed in the dorsal lithotomy position. The genitalia were prepped and draped in the usual fashion. At this time, a formal time-out was done, all the persons in the room were in agreement. I started the procedure by introducing a cystoscope into the bladder. Upon entry to the bladder, I identified the two ureteral orifices that were orthotopic in position. At the level of the right ureteral orifice, I identified a small stone that was already in the bladder. This stone was flushed out of the bladder and sent for analysis. The stone corresponded to the stone that was seen on CT scan before the procedure. At this point, I felt that there was no need for ureteroscopy. I used a 5-Tamazight ureteral catheter to intubate the right ureteral orifice and then shot a right retrograde pyelogram. This showed no filling defects and no significant hydronephrosis, confirming that the patient had no stones in the ureter. At this point, the bladder was emptied and this concluded the procedure. DISPOSITION Patient will be transferred back to his room. The stone will be sent for analysis. [facility]
--- NOTE | 2017-06-15 10:53 | Discharge Instructions ---
Discharge Plan - Med Rec/Dispo Referrals/Follow Up: Alfa Wilosn MD [Physician] - 1 Week Kathi Instructions: Kidney Stones (DC), Dehydration (DC) Prescriptions: New Mirtazapine Solu-Tab [Remeron Solu-Tab] 15 mg PO HS #30 tab Continue Cetirizine HCl [Zyrtec] 1 tab PO HS #0 tab Pantoprazole Tab [Protonix Tab] 1 tab PO ACB Gabapentin 2 cap PO TID Sertraline HCl [Zoloft] 50 mg PO DAILY [place]-3 Fatty Acids/Fish Oil [Fish Oil 1,200 mg Softgel] 1 each PO BID Multivitamin with Minerals [Men's One Daily] 1 each PO DAILY Ferrous Sulfate 1 tab PO DAILY Topiramate [Topamax] 100 mg PO DAILY Potassium Chloride [K-Dur] 1 tab PO BID Dronabinol [Marinol] 5 mg PO BID Indomethacin 50 mg PO DAILY Ondansetron Tab [Zofran Po] 4 mg PO TID Cetirizine HCl [Zyrtec] 1 tab PO DAILY Megestrol Acetate 5 ml PO DAILY Discontinued Ondansetron HCl [Zofran] 4 mg PO Q6H PRN #0 tab PRN Reason: NAUSEA Citalopram Hydrobromide [Citalopram HBr] 60 tab PO DAILY #0 tab Mirtazapine [Remeron] 15 mg PO HS Meloxicam [Mobic] 15 mg PO DAILY Sulfamethoxazole/Trimethoprim [Bactrim 400-80 mg Tablet] 2 each PO BID Topiramate [Topamax] 25 mg PO DAILY #0 tab hydroCHLOROthiazide [Hydrochlorothiazide] 1 tab PO BID #0 tab Metoprolol Tartrate 1 tab PO BID #60 Gabapentin 1 tab PO DAILY #0 cap Discharge Instructions/Outpatient Orders: Final Provider Discharge Instructions Location: Determined By Patient - Disposition 01 Discharged Home, Self-Care
--- NOTE | 2017-06-15 18:05 | Discharge Summary ---
Discharge Information Date of admission: 06/12/17 21:28 Attending Physician: Olimpia Maynard MD Primary care physician: Alfa Wilson M.D. Consults: Liam Mao Reason For Exam: hydronephrosis Aubrey Garcias Reason For Exam: recurrent dehydration - Discharge Diagnosis (1) Ureterolithiasis Status: Acute (2) SATISH (acute kidney injury) Status: Acute - Procedures Procedures: Cystoscopy with removal of stone from the bladder, right retrograde pyelogram on 06/14/17. Right retrograde pyelogram demonstrated no evidence of filling defects at time of procedure. - Laboratory Labs: On admission (06/12/17) white count 5.1, hemoglobin 10.2, bicarbonate 19, creatinine 1.8. Liver enzymes on 06/13 demonstrated slight elevation in bilirubin at 1.5, albumin 2.7 but remainder of liver enzymes were unremarkable. UA with +3 occult blood, 30-50 RBC, no WBC Prealbumin on 06/15 was 10.1. 06/15/17 04:13 06/15/17 04:13 Stone analysis pending at discharge - Radiology Radiology: Renal CT without contrast (stone protocol) on 06/13/17- Trace left and small right pleural effusions. The unenhanced contours of the liver show fatty infiltration. There is postoperative change in the area of the stomach with areas of induration and fat necrosis seen in the central mesentery and omentum that could be chronic. Recommend correlation with date of patient's prior surgery. The spleen with accessory splenules is unremarkable. The pancreas and adrenal glands are within normal limits. Left kidney is normal. No left-sided renal or ureteral stone. Right kidney has moderate hydronephrosis and mild hydroureter due to an obstructing 3 mm stone in the intramural portion of the ureter at the bladder. Bladder is otherwise normal. Prostate and rectum are unremarkable. No free fluid or evidence of a bowel obstruction. Mild left colonic diverticulosis without diverticulitis. The appendix is normal in a retrocecal location. Bone windows are normal for age. Impression: 1. Obstructing 3 mm right distal ureteral stone. 2. Small pleural effusions. History of Present Illness HPI: This is a 51y/o male with a history of chronic ureterolithiasis. The patient has had previous stones on his left side. More recently he had onset of abd pain and right flank pain. He has had ongoing CKD and had been admitted x 2 in his local hospital to manage his pain and to hopefully resolve his current stone problem. The patient had an USwhich demonstrated hydronephosis on the right without obvious stone. Because of ongoing pain and no resolution of his problem it was thought best to do a CT of his abdomen to better understand. [facility] does not have a CT capability. Contact was made with [facility] and it was informed that the urology was available. They recommended a CT urogram with and without iv contrast with delayed imaging. Currently the patient's cr is 1.8 and is not a candidate for iv contrast . We will proceed with non contrast CT (CT renal stone protocol) and make further recommendations per urology. patient is npo in case there will be a procedure Hospital Course This is a general summary of the patient's hospital course. For more details refer to the complete medical record. Hospital course: Assessment: Recurrent nephrolithiasis Right UVJ stone Acute kidney injury Right hydronephrosis Depression Recurrent dehydration Anorexia Hypertension Normocytic anemia GERD History GIST tumor Hospital course: Herve was transferred from [facility] with persistent right flank pain. Imaging demonstrated a right UVJ stone. He was seen in consultation by Dr. Mao and taken to the operating room on 06/14 for stone removal following hydration. Intraoperatively it was found that the stone had passed spontaneously into the bladder and the ureter was without evidence of obstruction by retrograde pyelogram. Pain control improved significantly post procedure and patient was stable for discharge on 06/15. There was evidence of acute kidney injury on admission which improved progressively with further hydration. The patient has had recurrent episodes of dehydration since surgery earlier this summer and after discussion with Dr. Wilson PICC line was left in in the event additional fluids are needed in the near future. Patient was evaluated by Dr. Garcias who initially identified the patient's gastric tumor to determine if he is a candidate for some form of feeding tube to permit enteral hydration as opposed to need for recurrent hospitalizations for hydration and to prevent recurrent nephrolithiasis. Dr. Garcias plans to speak further with the patient's surgeon in [place]. Additionally the patient/ indicated plans to follow-up with further psychiatric evaluation regarding patient's difficulty tolerating oral liquids as he has tolerated solid food better recently but remains intolerant of liquids. On 06/15 the patient was pain-free and tolerating limited oral liquids. He is generally been eating food fairly well. The patient denied dyspnea or nausea. Abdomen was entirely benign and there was no discomfort on palpation in the right lower quadrant. Respirations were nonlabored and breath sounds clear. Blood pressure has improved compared to prior days when it was moderately elevated. Discharge blood pressure 138/82. He stable for discharge at this time. The patient will remain on home medications as in the past with the following exceptions: Bactrim discontinued Meloxicam discontinued (patient on indomethacin) Mirtazapine switched from tablet to solutab to enhance continuous use The patient's reported several medications are being used but did not appear on our admission medication list-patient advised to continue using as in the past. The patient is asked to follow up with Dr. Wilson in one week. Time spent with patient: discharge greater than 30 minutes Discharge Plan - Med Rec/Dispo Referrals/Follow Up: Alfa Wilson MD [Physician] - 1 Week Kathi Instructions: Dehydration (DC), Kidney Stones (DC) Prescriptions: New Mirtazapine Solu-Tab [Remeron Solu-Tab] 15 mg PO HS #30 tab Continue Pantoprazole Tab [Protonix Tab] 1 tab PO ACB Gabapentin 2 cap PO TID Sertraline HCl [Zoloft] 50 mg PO DAILY [place]-3 Fatty Acids/Fish Oil [Fish Oil 1,200 mg Softgel] 1 each PO BID Multivitamin with Minerals [Men's One Daily] 1 each PO DAILY Ferrous Sulfate 1 tab PO DAILY Topiramate [Topamax] 100 mg PO DAILY Potassium Chloride [K-Dur] 1 tab PO BID Dronabinol [Marinol] 5 mg PO BID Indomethacin 50 mg PO DAILY Ondansetron Tab [Zofran Po] 4 mg PO TID Cetirizine HCl [Zyrtec] 1 tab PO DAILY Megestrol Acetate 5 ml PO DAILY Discontinued Ondansetron HCl [Zofran] 4 mg PO Q6H PRN #0 tab PRN Reason: NAUSEA Citalopram Hydrobromide [Citalopram HBr] 60 tab PO DAILY #0 tab Mirtazapine [Remeron] 15 mg PO HS Meloxicam [Mobic] 15 mg PO DAILY Sulfamethoxazole/Trimethoprim [Bactrim 400-80 mg Tablet] 2 each PO BID Topiramate [Topamax] 25 mg PO DAILY #0 tab hydroCHLOROthiazide [Hydrochlorothiazide] 1 tab PO BID #0 tab Metoprolol Tartrate 1 tab PO BID #60 Gabapentin 1 tab PO DAILY #0 cap Discharge Instructions/Outpatient Orders: Final Provider Discharge Instructions Location: Determined By Patient - Disposition 01 Discharged Home, Self-Care
== END 2017-06-15 11:40 | disposition home or self-care (01) | DRG 694 ==
LOC: EDBD → SRG → MERGE 21:28
PROVIDERS: ADMIT Internal Medicine; ATTEND Internal Medicine

== ENCOUNTER 2017-07-11 11:05 | Inpatient (IN) ==
[2017-07-11] MEDS ORDERED: ONDANSETRON 4 MG/2 ML INJECTION IVP ONE (11:21)
[2017-07-11] MEDS ORDERED: NS 1,000 ML IV ONE (11:21)
[2017-07-11] MEDS ORDERED: PROCHLORPERAZINE 10 MG/2 ML INJECTION IVP ONE (11:21)
--- OUTSIDE RECORDS SUMMARY | 2017-07-11 11:24 | External Medical Summary | CCD ---
:1965 Author Name KHRIS URENA Address [address], [place] [id number] Care Team Providers Name Role Phone OANH COFFMAN Attending Physician Unavailable Vital Signs Unknown or Not Available. Allergies Unknown or Not Available. Procedures Unknown or Not Available. History of Immunizations Unknown or Not Available. Problems Unknown or Not Available. Results Unknown or Not Available. Active Medications Unknown or Not Available. Medications Administered During Visit Unknown or Not Available. Encounters Encounter Diagnosis Diagnosis Code Start Date Benign paroxysmal vertigo, [id number] 05/11/2016 bilateral Social History Smoking Status Code Start Date End Date Never smoker [id number] Patient Decision Aids Unknown or Not Available. Discharge Instructions You were admitted to [facility] on 05/11/2016 14:45 with a principal diagnosis of Benign paroxysmal vertigo, bilateral You were discharged from [facility] on 05/25/2016 11:01 Should you have any questions prior to discharge, please contact a member of your healthcare team. If you have left the hospital and have any questions, please contact your primary care physician. Chief Complaint and Reason For Visit Chief Complaint Date of Onset PT Function Status Unknown or Not Available. Plan of Care Unknown or Not Available. Referral/Transition of Care Unknown or Not Available.
--- OUTSIDE RECORDS SUMMARY | 2017-07-11 11:24 | External Medical Summary | Continuity Of Care Document ---
:1965 Author Organization [facility] Address [address] [place] [address] Phone Care Team Providers Name Role Phone DANIEL ESPINO, PETER Attending Provider Unavailable Unavailable Unavailable KAE PARKER DO Consulting Provider GILSON ESPINO, MEE Cervantes Primary Care Provider ADELSO ESPINO, KATERINE Stevens Admitting Provider TJ ESPINO, JUAN CARLOS Neville Consulting Provider Results Lab Results Visit/Account #[id number] (May 11, 2017 5:00pm - May 16, 2017 1:30pm) Test Result Date/Time POCGL POCGL(70-110 MG/DL) 112 MG/DL May 14, 2017 10:03am 103 MG/DL May 15, 2017 4:07am COMPLETE BLOOD COUNT WITH DIFF WHITE BLOOD COUNT(4.0-11.0 10E3/UL) 11.2 10E3/UL May 14, 2017 9:27am RED BLOOD COUNT(4.50-5.90 10E6/UL) 4.15 10E6/UL May 14, 2017 9:27am HEMOGLOBIN(13.5-17.5 G/DL) 12.0 G/DL May 14, 2017 9:27am HEMATOCRIT(41.0-53.0 %) 37.3 % May 14, 2017 9:27am MEAN CORPUSCULAR VOLUME(82.0-100.0 FL) 89.9 FL May 14, 2017 9:27am MEAN CORPUSCULAR HEMOGLOBIN(26.0-34.0 PG) 28.9 PG May 14, 2017 9:27am MEAN CORPUSCULAR HGB CONC(31.5-36.5 G/DL) 32.2 G/DL May 14, 2017 9:27am RED CELL DISTRIBUTION WIDTH(11.5-14.5 %) 13.0 % May 14, 2017 9:27am 777-3: PLATELET COUNT(150-450 10E3/UL) 324 10E3/UL May 14, 2017 9:27am MEAN PLATELET VOLUME(8.2-12.4 FL) 9.8 FL May 14, 2017 9:27am NEUTROPHILS % (AUTO)(40-70 %) 75 % May 14, 2017 9:27am LYMPHOCYTES % (AUTO)(15-45 %) 18 % May 14, 2017 9:27am MONOCYTES % (AUTO)(2-10 %) 6 % May 14, 2017 9:27am EOSINOPHILS % (AUTO)(0-6 %) 1 % May 14, 2017 9:27am BASOPHILS % (AUTO)(0-1 %) 0 % May 14, 2017 9:27am IMMATURE GRANS % (AUTO)(0-0 %) 0 % May 14, 2017 9:27am NUCLEATED RBCS (AUTO)(0-0 %) 0 % May 14, 2017 9:27am NEUTROPHILS # (AUTO)(2.5-7.5 10E3/UL) 8.4 10E3/UL May 14, 2017 9:27am LYMPHOCYTES # (AUTO)(1.0-4.0 10E3/UL) 2.0 10E3/UL May 14, 2017 9:27am MONOCYTES # (AUTO)(0.2-0.8 10E3/UL) 0.6 10E3/UL May 14, 2017 9:27am EOSINOPHILS # (AUTO)(0.0-0.4 10E3/UL) 0.1 10E3/UL May 14, 2017 9:27am BASOPHILS # (AUTO)(0.0-0.2 10E3/UL) 0.0 10E3/UL May 14, 2017 9:27am IMMATURE GRANS # (AUTO)(0.0-0.0 10E3/UL) 0.1 10E3/UL May 14, 2017 9:27am DIFF TYPE AUTOMATED May 14, 2017 9:27am COMPLETE BLOOD COUNT WHITE BLOOD COUNT(4.0-11.0 10E3/UL) 9.3 10E3/UL May 15, 2017 7:53am RED BLOOD COUNT(4.50-5.90 10E6/UL) 3.81 10E6/UL May 15, 2017 7:53am HEMOGLOBIN(13.5-17.5 G/DL) 11.1 G/DL May 15, 2017 7:53am HEMATOCRIT(41.0-53.0 %) 33.9 % May 15, 2017 7:53am MEAN CORPUSCULAR VOLUME(82.0-100.0 FL) 89.0 FL May 15, 2017 7:53am MEAN CORPUSCULAR HEMOGLOBIN(26.0-34.0 PG) 29.1 PG May 15, 2017 7:53am MEAN CORPUSCULAR HGB CONC(31.5-36.5 G/DL) 32.7 G/DL May 15, 2017 7:53am RED CELL DISTRIBUTION WIDTH(11.5-14.5 %) 13.0 % May 15, 2017 7:53am 777-3: PLATELET COUNT(150-450 10E3/UL) 268 10E3/UL May 15, 2017 7:53am MEAN PLATELET VOLUME(8.2-12.4 FL) 9.9 FL May 15, 2017 7:53am NUCLEATED RBCS (AUTO)(0-0 %) 0 % May 15, 2017 7:53am RETIC PANEL RETICULOCYTE %(0.2-2.0 %) 1.0 % May 15, 2017 7:53am ABSOLUTE RETICS #(26-95 10E9/L) 40 10E9/L May 15, 2017 7:53am IMMATURE RETIC FRACTION(2.3-13.4 %) 10.2 % May 15, 2017 7:53am UA WITH SCREEN FOR CULTURE COLOR,URINE YELLOW May 12, 2017 6:55pm CLARITY,URINE SLIGHTLY CLOUDY May 12, 2017 6:55pm GLUCOSE, URINE(NEGATIVE MG/DL) NEGATIVE MG/DL May 12, 2017 6:55pm URINE BILIRUBIN(NEGATIVE) SMALL May 12, 2017 6:55pm KETONES,URINE(NEGATIVE MG/DL) NEGATIVE MG/DL May 12, 2017 6:55pm URINE SPECIFIC GRAVITY(1.001-1.035) 1.019 May 12, 2017 6:55pm URINE BLOOD(NEGATIVE) NEGATIVE May 12, 2017 6:55pm URINE PH(5.0-9.0) 8.0 May 12, 2017 6:55pm URINE PROTEIN(Less than 20 MG/DL) 30 MG/DL May 12, 2017 6:55pm URINE UROBILINOGEN(0.2-1.0 MG/DL) Greater than 8.0 MG/DL May 12, 2017 6: 55pm URINE NITRITE(NEGATIVE) NEGATIVE May 12, 2017 6:55pm LEUKOCYTE ESTERASE ,URINE(NEGATIVE) NEGATIVE May 12, 2017 6:55pm URINE RBCS(0-3 /HPF) 0-3 /HPF May 12, 2017 6:55pm URINE WBCS(0-3 /HPF) 0-3 /HPF May 12, 2017 6:55pm URINE EPITHELIAL CELLS(0-3 /HPF) 0-3 /HPF May 12, 2017 6:55pm URINE HYALINE CASTS(0-3 /LPF) 13-20 /LPF May 12, 2017 6:55pm URINE BACTERIA(NEGATIVE /HPF) NEGATIVE /HPF May 12, 2017 6:55pm URINE CULTURE NOT INDICATED May 12, 2017 6:55pm URINE MICROSCOPIC REQUIRED YES May 12, 2017 6:55pm COMPLETE METABOLIC PROFILE GLUCOSE(70-110 MG/DL) 113 MG/DL May 14, 2017 9:27am BLOOD UREA NITROGEN(6-20 MG/DL) 10 MG/DL May 14, 2017 9:27am CREATININE(0.50-1.20 MG/DL) 1.40 MG/DL May 14, 2017 9:27am EST GLOMERULAR FILTRATION RATE(Greater than or equal to 60) 54 May 14, 2017 9:27am Result Comments: If the patient is of -Turkish descent/extraction multiply the eGFR value by 1.212 to obtain the actual eGFR. >=60 mg/dL Normal 30-59 mg/dL Moderate Kidney Disease 15-29 mg/dL Severe Kidney Disease <15 mg/dL Kidney Failure BUN CREATININE RATIO(10.0-20.0 RATIO) 7.0 RATIO May 14, 2017 9:27am SODIUM(135-145 MMOL/L) 142 MMOL/L May 14, 2017 9:27am POTASSIUM(3.6-5.0 MMOL/L) 3.5 MMOL/L May 14, 2017 9:27am CHLORIDE(101-111 MMOL/L) 107 MMOL/L May 14, 2017 9:27am CO2(21-31 MMOL/L) 24 MMOL/L May 14, 2017 9:27am ANION GAP(8-18) 15 May 14, 2017 9:27am OSMO CALCULATED(270.0-290.0) 283.0 May 14, 2017 9:27am CALCIUM(8.5-10.5 MG/DL) 8.9 MG/DL May 14, 2017 9:27am BILIRUBIN,TOTAL(0.1-1.2 MG/DL) 1.5 MG/DL May 14, 2017 9:27am ALKALINE PHOSPHATASE(42-121 IU/L) 80 IU/L May 14, 2017 9:27am ASPARTATE AMINO TRANSFERASE(10-42 IU/L) 18 IU/L May 14, 2017 9:27am ALANINE AMINOTRANSFERASE(10-60 IU/L) 24 IU/L May 14, 2017 9:27am TOTAL PROTEIN(6.4-8.2 G/DL) 7.3 G/DL May 14, 2017 9:27am ALBUMIN(3.5-5.5 G/DL) 3.3 G/DL May 14, 2017 9:27am GLOBULIN(2.4-3.6) 4.0 May 14, 2017 9:27am ALBUMIN/GLOBULIN RATIO(0.9-1.8 RATIO) 0.8 RATIO May 14, 2017 9:27am BASIC METABOLIC PANEL GLUCOSE(70-110 MG/DL) 98 MG/DL May 15, 2017 7:53am BLOOD UREA NITROGEN(6-20 MG/DL) 9 MG/DL May 15, 2017 7:53am CREATININE(0.50-1.20 MG/DL) 1.08 MG/DL May 15, 2017 7:53am EST GLOMERULAR FILTRATION RATE(Greater than or equal to 60) Greater than or equal to 60 May 15, 2017 7:53am Result Comments: If the patient is of -Turkish descent/extraction multiply the eGFR value by 1.212 to obtain the actual eGFR. >=60 mg/dL Normal 30-59 mg/dL Moderate Kidney Disease 15-29 mg/dL Severe Kidney Disease <15 mg/dL Kidney Failure BUN CREATININE RATIO(10.0-20.0 RATIO) 8.0 RATIO May 15, 2017 7:53am SODIUM(135-145 MMOL/L) 140 MMOL/L May 15, 2017 7:53am POTASSIUM(3.6-5.0 MMOL/L) 3.3 MMOL/L May 15, 2017 7:53am CHLORIDE(101-111 MMOL/L) 109 MMOL/L May 15, 2017 7:53am CO2(21-31 MMOL/L) 22 MMOL/L May 15, 2017 7:53am ANION GAP(8-18) 12 May 15, 2017 7:53am OSMO CALCULATED(270.0-290.0) 278.1 May 15, 2017 7:53am CALCIUM(8.5-10.5 MG/DL) 8.5 MG/DL May 15, 2017 7:53am TOTAL IRON BINDING CAPACITY IRON BINDING CAPACITY, TOTAL(250-400 UG/DL) 165 UG/DL May 15, 2017 7:53am TRANSFERRIN(180-329 MG/DL) 118 MG/DL May 15, 2017 7:53am MAGNESIUM MAGNESIUM(1.8-2.5 MG/DL) 2.1 MG/DL May 14, 2017 9:23am 2.0 MG/DL May 15, 2017 7:53am PHOSPHORUS PHOSPHORUS(2.5-4.6 MG/DL) 3.4 MG/DL May 14, 2017 9:23am IRON IRON(40-160 UG/DL) 22 UG/DL May 15, 2017 7:53am FERRITIN FERRITIN(23.9-336.2 NG/ML) 387.0 NG/ML May 15, 2017 7:53am VITAMIN B12 AND FOLATE VITAMIN B12(180-914 PG/ML) 375 PG/ML May 15, 2017 7:53am Result Comments: REFERENCE RANGES: B12 NORMAL 180-914 PG/ML B12 INDETERMINATE 145-180 PG/ML B12 DEFICIENT <145 PG/ML FOLATE(5.90-24.80 NG/ML) 10.05 NG/ML May 15, 2017 7:53am Result Comments: The folate assay is not traceable to WHO standards. Patient values may shift upwards from previous values. Please note the new Reference Range and Deficiency cutoff values. Reference Range: 5.90 - 24.80 ng/ml Deficiency Cutoff: <4.00 ng/ml Microbiology Results Visit/Account #[id number] (May 11, 2017 5:00pm - May 16, 2017 1:30pm) Procedure Result MRSA SCREEN FOR INFEC CONTROL MRSA SCREEN FOR INFEC CONTROL Result Instance On May 11, 2017 6:35pm Source: NARE Special Result Comments: No growth Allergies and Adverse Reactions Allergies and Adverse Reactions Patient Unit Number: [id number] Agent Type Reaction Severity Status NO KNOWN ALLERGIES Drug Allergy Unknown Unknown Active Problem List Problem List Visit/Account #[id number] (May 11, 2017 5:00pm - May 16, 2017 1:30pm) Active Problems: Code/Condition Comments Documented Start Date Documented Resolved Code(s) Date F32.1 MAJOR DEPRESSIVE DISORDER, SINGLE EPISODE, MODERATE May 16, 2017 E87.6 HYPOKALEMIA May 16, 2017 D64.9 ANEMIA, UNSPECIFIED May 16, 2017 T42.4X5A ADVERSE EFFECT OF BENZODIAZEPINES, INITIAL ENCOUNTER May 16, [address] PLACE May 16, 2017 Z68.29 BODY MASS INDEX (BMI) 29.0-29.9, ADULT May 16, 2017 Z90.3 ACQUIRED ABSENCE OF STOMACH [PART OF] May 16, 2017 Z85.01 PERSONAL HISTORY OF MALIGNANT NEOPLASM OF ESOPHAGUS May 16, 2017 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 Functional Status Functional and Cognitive Status No Functional Status Data Medications Home Medications - Medications that the patient was taking prior to arrival at the hospital Visit/Account #[id number] (May 11, 2017 5:00pm - May 16, 2017 1:30pm) Medication Route Sig/Schedule Precondition/Indication Comments/ Instructions Codes LOPRESSOR(METOPROLOL TARTRATE) 50 MG TABLET ORAL DAILY LOPRESSOR ( METOPROLOL TARTRATE) NDC: 53027820162 Dose: 50 MG NEURONTIN(GABAPENTIN) 300 MG CAPSULE ORAL DAILY NEURONTIN (GABAPENTIN) NDC: 62649219946 Dose: 300 MG REGLAN(METOCLOPRAMIDE HCL) 5 MG TABLET ORAL DAILY REGLAN ( METOCLOPRAMIDE HCL) NDC: 43390257893 Dose: 5 MG DIAZEPAM(DiazePAM) 5 MG TABLET ORAL DAILY DIAZEPAM (DiazePAM) NDC: 44073338610 Dose: 5 MG MARINOL(DRONABINOL) 2.5 MG CAP ORAL BID MARINOL (DRONABINOL) NDC: 36913883034 Dose: 2.5 MG MICROZIDE(HydroCHLOROthiazide) 25 MG TABLET ORAL DAILY MICROZIDE ( HydroCHLOROthiazide) NDC: 37588524347 Dose: 25 MG INDOCIN(INDOMETHACIN) 50 MG CAPSULE ORAL BID INDOCIN (INDOMETHACIN) NDC : 64216508977 Dose: 50 MG REMERON(MIRTAZAPINE) 15 MG TAB ORAL HS REMERON (MIRTAZAPINE) NDC: 98066364873 Dose: 15 MG TOPAMAX(TOPIRAMATE) 100 MG TABLET ORAL BID TOPAMAX (TOPIRAMATE) NDC: 34179695773 Dose: 100 MG ZOLOFT(SERTRALINE HCL) 50 MG TAB ORAL DAILY ZOLOFT (SERTRALINE HCL) NDC : 74196373086 Dose: 50 MG PROTONIX(PANTOPRAZOLE) 40 MG TAB ORAL DAILY PROTONIX (PANTOPRAZOLE) NDC : 64998955470 Dose: 40 MG CARAFATE SUSP(SUCRALFATE) 1 GM/10 ML SUSPENSION ORAL ACHS CARAFATE SUSP (SUCRALFATE) NDC: 66539871029 Dose: 1 GM ZOFRAN ODT(ONDANSETRON) 4 MG TAB.RAPDIS ORAL Q4H NAUSEA/VOMITING ZOFRAN ODT (ONDANSETRON) NDC: 84486648821 Dose: 4 MG PERCOCET 5-325 MG TABLET(OxyCODONE HCL/ACETAMINOPHEN) 1 EACH TABLET ORAL Q4S PAIN PERCOCET 5-325 MG TABLET (OxyCODONE HCL/ACETAMINOPHEN) NDC: 43367251153 Dose: 1 TAB ZYRTEC(CETIRIZINE HCL) 10 MG CAPSULE ORAL DAILY ZYRTEC (CETIRIZINE HCL) NDC: 18349612786 Dose: 10 MG TRANSDERM-SCOP 1.5 MG PATCH(SCOPOLAMINE) 1 EACH PATCH.TD.3 TOPICALLY Q72S NAUSEA/VOMITING TRANSDERM-SCOP 1.5 MG PATCH (SCOPOLAMINE) NDC: 30929486464 Dose: 1 EACH NULEV(HYOSCYAMINE SULFATE) 0.125 MG TAB.RAPDIS ORAL Q4S ANXIETY/AGITATION NULEV (HYOSCYAMINE SULFATE) NDC: 80502817768 Dose: 0.25 MG Inpatient/Ordered Medications - Medications administered during hospital visit Visit/Account #[id number] (May 11, 2017 5:00pm - May 16, 2017 1:30pm) Medication Route Sig/Schedule Precondition/Indication Comments/ Instructions Codes MAALOX PLUS(AL HYDROX/MG HYDROX/SIMETH) 30 ML LIQUID ORAL 4XD PRN Reason: DYSPEPSIA MAALOX PLUS (AL HYDROX/MG HYDROX/SIMETH) NDC: 03720317841 Dose: 30 ML CLARITIN(LORATADINE) 10 MG TAB ORAL DAILY Label Comments: CLARITIN ( LORATADINE) NDC: 63326246058 Dose: 10 MG AUTOSUB FOR ZYRTEC MARINOL(DRONABINOL) 2.5 MG CAP ORAL BID MARINOL (DRONABINOL) NDC: 18964654942 Dose: 2.5 MG MICROZIDE(HydroCHLOROthiazide) 25 MG TAB ORAL DAILY Label Comments: MICROZIDE (HydroCHLOROthiazide) NDC: 48721266959 Dose: 25 MG MAY INCREASE FALL RISK REGLAN(METOCLOPRAMIDE HCL) 5 MG TAB ORAL DAILY Label Comments: REGLAN ( METOCLOPRAMIDE HCL) NDC: 44879897477 Dose: 5 MG MAY INCREASE FALL RISK REMERON(MIRTAZAPINE) 15 MG TAB ORAL HS Label Comments: REMERON ( MIRTAZAPINE) NDC: 25826691421 Dose: 15 MG MAY INCREASE FALL RISK ZOFRAN ODT(ONDANSETRON HCL) 4 MG TAB ORAL Q4H PRN Reason: NAUSEA/VOMITING Label Comments: ZOFRAN ODT (ONDANSETRON HCL) NDC: 47064050822 Dose: 4 MG MAY INCREASE FALL RISK PROTONIX(PANTOPRAZOLE SOD) 40 MG TAB ORAL 60ACB PROTONIX (PANTOPRAZOLE SOD) NDC: 37812203211 Dose: 40 MG ZOLOFT(SERTRALINE HCL) 50 MG TAB ORAL DAILY Label Comments: ZOLOFT ( SERTRALINE HCL) NDC: 14449089539 Dose: 50 MG MAY INCREASE FALL RISK VALIUM(DiazePAM) 5 MG TAB ORAL BID Label Comments: VALIUM (DiazePAM) NDC : 48897436091 Dose: 5 MG MAY INCREASE FALL RISK NEURONTIN(GABAPENTIN) 300 MG CAP ORAL BID Label Comments: NEURONTIN ( GABAPENTIN) NDC: 80122464049 Dose: 300 MG MAY INCREASE FALL RISK CARAFATE SUSP(SUCRALFATE) 1 GM/10 ML SUSPENSION ORAL TID Label Comments: CARAFATE SUSP (SUCRALFATE) NDC: 21499392839 Dose: 10 ML SHAKE WELL TOPAMAX(TOPIRAMATE) 100 MG TAB ORAL HS Label Comments: TOPAMAX ( TOPIRAMATE) NDC: 46138620173 Dose: 100 MG MAY INCREASE FALL RISK. TERATOGENIC. WOMEN SHOULD NOT HANDLE OR CRUSH. VALIUM(DiazePAM) 5 MG TAB ORAL HS Label Comments: VALIUM (DiazePAM) NDC: 34807978038 Dose: 5 MG MAY INCREASE FALL RISK INDERAL(PROPRANOLOL HCL) 10 MG TAB ORAL DAILYB Label Comments: INDERAL ( PROPRANOLOL HCL) NDC: 32274371154 Dose: 10 MG MAY INCREASE FALL RISK TRANSDERM-SCOP 1.5 MG PATCH(SCOPOLAMINE) 1 PATCH PATCH TOPICALLY Q72H Label Comments: TRANSDERM-SCOP 1.5 MG PATCH (SCOPOLAMINE) NDC: 56729833515 Dose: 1 PATCH Apply patch to hairless area behind ear. MAY INCREASE FALL RISK Special Dose Instructions: APPLY TO SKIN BEHIND THE EAR REMERON(MIRTAZAPINE) 30 MG TAB ORAL HS Rx Order Comments: REMERON ( MIRTAZAPINE) NDC: 97626377588 Dose: 30 MG Order filed UNV: Allergies/Duplicates/Interactions differ from division order analyst Label Comments: MAY INCREASE FALL RISK QUESTRAN PWD(CHOLESTYRAMINE) 4 GM PACKET ORAL BID@0800,1900 Label Comments : QUESTRAN PWD (CHOLESTYRAMINE) NDC: 32605929117 Dose: 4 GM ADMINISTER OTHER MEDS 1 HR PRIOR OR 4 HR AFTER QUESTRAN CULTURELLE(LACTOBACILLUS RHAMNOSUS) 1 CAP CAP ORAL BID Rx Order Comments: CULTURELLE (LACTOBACILLUS RHAMNOSUS) NDC: 99616185134 Dose: 1 CAP Order filed UNV: Dose Warnings differ from division order analyst K-DUR(POTASSIUM CHLORIDE) 20 MEQ TAB ORAL NOW Label Comments: K-DUR ( POTASSIUM CHLORIDE) NDC: 50684665328 Dose: 20 MEQ TAKE WITH FOOD TO AVOID GI UPSET IV Medication INTRAVEN .Q6H40M (Rate: 150 MLS/HR Duration: 6 HR 40 MIN) Carriers: Carriers: NORMAL SALINE (SODIUM CHLORIDE) NDC: 54772014078 NORMAL SALINE(SODIUM CHLORIDE) 1000 ML INJECTION Dose: 1000 ML MULTIVITAMINS/FOLIC AC/VIT C 1 TAB TAB ORAL DAILY (MULTIVITAMINS/FOLIC AC/VIT C) NDC: 61549893625 Dose: 1 TAB FERROUS SULFATE 325 MG TAB ORAL DAILY Label Comments: (FERROUS SULFATE) NDC: 21012382318 Dose: 325 MG TAKE WITH FOOD IF STOMACH UPSET OCCURS. OTHERWISE TAKE BETWEEN MEALS FOR MAXIMUM ABSORPTION. Discharge Medications - Medications that patient should continue to take. Review with physician Visit/Account #[id number] (May 11, 2017 5:00pm - May 16, 2017 1:30pm) Medication Route Sig/Schedule Precondition/Indication Comments/ Instructions Codes REGLAN(METOCLOPRAMIDE HCL) 5 MG TABLET ORAL DAILY REGLAN ( METOCLOPRAMIDE HCL) NDC: 76231423431 Dose: 5 MG MARINOL(DRONABINOL) 2.5 MG CAP ORAL BID MARINOL (DRONABINOL) NDC: 20568277192 Dose: 2.5 MG ZOLOFT(SERTRALINE HCL) 50 MG TAB ORAL DAILY ZOLOFT (SERTRALINE HCL) NDC : 27273150238 Dose: 50 MG PROTONIX(PANTOPRAZOLE) 40 MG TAB ORAL DAILY PROTONIX (PANTOPRAZOLE) NDC : 55091658500 Dose: 40 MG ZOFRAN ODT(ONDANSETRON) 4 MG TAB.RAPDIS ORAL Q4H NAUSEA/VOMITING ZOFRAN ODT (ONDANSETRON) NDC: 84693076756 Dose: 4 MG Questran(CHOLESTYRAMINE) 4 GM PACKET ORAL BID@0800,1900 Questran ( CHOLESTYRAMINE) NDC: 63705355394 Dose: 4 GM FERROUS SULFate(FERROUS SULFATE) 325 MG TABLET ORAL DAILY FERROUS SULFate (FERROUS SULFATE) NDC: 97413835234 Dose: 325 MG Neurontin(GABAPENTIN) 300 MG CAP ORAL BID Neurontin (GABAPENTIN) NDC: 49495182488 Dose: 300 MG CULTURELLE(LACTOBACILLUS RHAMNOSUS) 1 EACH CAPSULE ORAL BID CULTURELLE ( LACTOBACILLUS RHAMNOSUS) NDC: 74005458404 Dose: 1 CAP Mirtazapine(MIRTAZAPINE) 30 MG TABLET ORAL HS Mirtazapine (MIRTAZAPINE) NDC: 12512327304 Dose: 30 MG CHILD CHEW VITAMIN(MULTIVITAMIN) 1 EACH TAB.CHEW ORAL DAILY CHILD CHEW VITAMIN (MULTIVITAMIN) NDC: 89558539280 Dose: 1 TAB POTASSIUM CHLORIDE(POTASSIUM CHLORIDE) 20 MEQ PACKET ORAL DAILYB POTASSIUM CHLORIDE (POTASSIUM CHLORIDE) NDC: 56688163672 Dose: 20 MEQ Propranolol(PROPRANOLOL HCL) 10 MG TAB ORAL DAILYB Propranolol ( PROPRANOLOL HCL) NDC: 43346427443 Dose: 10 MG Topamax(TOPIRAMATE) 100 MG TAB ORAL HS Topamax (TOPIRAMATE) NDC: 19231504263 Dose: 100 MG CARAFATE SUSP(SUCRALFATE) 1 GM/10 ML SUSPENSION ORAL TID CARAFATE SUSP ( SUCRALFATE) NDC: 93679711205 Dose: 1 GM History Of Encounters Encounters Visit/Account #[id number] (May 11, 2017 5:00pm - May 16, 2017 1:30pm) Account Physican Of Reason For Visit Diagnosis Start Date/Time Stop Date/ Time Status Record Visit IN PETER SANCHEZ MD SI RM 10 F41.1: GENERALIZED ANXIETY DISORDER ICD10 May 11, 2017 5:00pm May 16, 2017 1:30pm History of Procedures Procedure List No procedures recorded. Discharge Instructions Discharge Instructions Visit/Account #[id number] (May 11, 2017 5:00pm - May 16, 2017 1:30pm) DISCHARGE INSTRUCTIONS Physician Documentation PROVIDER INSTRUCTIONS DISCHARGE DATE May 16, 2017 Discharge Diet As Tolerated Bowel Care As Needed Patient Received Medication with [facility] Emergency Department Assistance? N Samples Arranged for Pickup at [facility] N Other Discharge Instructions Continue medications as prescribed. REASON TO CALL PROVIDER Notify Physician if: Recurrent/increased depression or new onset suicidal thoughts. FOLLOW UP APPOINTMENTS Follow Up Appointment Date/Time: Follow up with Kelsi at [address] [phone] Appointment on May 23 at 10 am. Follow up with Dr. Wilson [address] [place] [address] Appointment on May at 11 am for medication managment and management of all medical concerns. Patient will need referral to local dietitian for ongoing assistance in dietary regimen similar to that after gastric bypass surgery for weight loss. Folow up with surgeon to have your questios regarding ongoing treatment after tumor removal. PATIENT SUMMARY Health Summary Given to Patient Y Social History Social History No Social History Data. Immunizations Immunizations Patient Unit Number: [id number] Immunizations No immunizations recorded.
--- OUTSIDE RECORDS SUMMARY | 2017-07-11 11:24 | External Medical Summary | Summary of Care ---
:1965 Author Name Aarti Nugent M.A., A Jill Address [address], [place] [id number] Care Team Providers Name Role Phone Aarti Nugent M.A., A Jill Unavailable Unavailable Moncho Azevedo M.D. Unavailable Unavailable Junior Franks Unavailable Unavailable Unavailable Unavailable Functional Status Functional Status Health Issues Name Dates Details Functional status health issues are not documented Status: Cognitive Status Health Issues Name Dates Details Cognitive status health issues are not documented Status: Problems Name Dates Details Sensorineural hearing loss, bilateral (389.18, H90.3) Status: Active Vertigo (780.4, R42) Status: Active Medications Name Dates Details Citalopram Hydrobromide 40 MG Oral Tablet Refills: 0 Voorman M.D., Moncho Start 09-Nov-2016 Active Metoprolol Tartrate 25 MG Oral Tablet Refills: 0 Voorman M.D., Moncho Start 09-Nov-2016 Active HydroCHLOROthiazide 25 MG Oral Tablet Refills: 0 Voorman M.D., Moncho Start 09-Nov-2016 Active Zofran 8 MG Oral Tablet Refills: 0 Voorman M.D., Moncho Start 09-Nov-2016 Active Gabapentin 400 MG Oral Capsule Refills: 0 Voorman M.D., Moncho Start 09-Nov-2016 Active Allergies and Adverse Reactions Name Dates Details No Known Drug Allergies (Allergy) Status: Active Past Medical History Name Dates Details History of hypertension (V12.59, Z86.79) Status: Resolved History of irritable bowel syndrome (V12.79, Z87.19) Status: Resolved Procedures Procedure Dates Details Procedures not documented Immunization Name Dates Details Immunizations not documented Family History Mother Name Dates Details Family history of hypertension (V17.49, Z82.49) Status: Active Family history of High cholesterol (272.0, E78.00) Status: Active Family history of liver disease (V18.59, Z83.79) Status: Active Family history of kidney disease (V18.69, Z84.1) Status: Active Family history of complications due to general anesthesia (V19.8, Z84.89) Status: Active Father Name Dates Details Family history of lung disease (V19.8, Z83.6) Status: Active Family history of diabetes mellitus (V18.0, Z83.3) Status: Active Social History Name Dates Details - Status: Smoking Status Name Dates Details Never smoker Vital Signs Date Test Result Details No Known Vitals to report Results Date Description Value Details Results not documented Plan of Care Name Dates Details Planned Observations Planned Goals not documented Instructions Name Dates Details Instructions not documented Encounters Appointment; Shama Shah Au.D. On 09-Nov-2016 Encounter Diagnosis: Problem not documented 10:45 Appointment; Moncho Azevedo M.D. On 09-Nov-2016 Encounter Diagnosis: Problem not documented 10:00
--- OUTSIDE RECORDS SUMMARY | 2017-07-11 11:24 | External Medical Summary | CCD ---
:1965 Author Name KHRIS URENA Address [address], [place] [id number] Care Team Providers Name Role Phone OANH [...] Code Start Date End Date Never smoker [phone] Patient Decision Aids Unknown or Not Available. Discharge Instructions You were admitted to [facility] on 05/11/2016 14:45 with a principal diagnosis of Benign paroxysmal vertigo, bilateral You were discharged from [facility] on 05/25/2016 11:01 Should you have [...]
[2017-07-11] MEDS: SALINE FLUSH 10ml SYRINGE IVF PRN ×3 (12:57→23:09)
--- NOTE | 2017-07-11 13:00 | XRay Report ---
EXAM: XR KUB w upright COMPARISON: 06/13/2017 CT abdomen and pelvis. 12/15/2016 CT abdomen pelvis. HISTORY: n/v/d . FINDINGS: The lung bases are clear. There is a moderate amount of stool and air seen throughout the colon. Some air-filled loops of nondilated small bowel is seen in the right upper quadrant and left upper quadrants. Calcifications are noted in the pelvis which may represent phleboliths. Facet hypertrophic changes are seen of the lower lumbar spine. IMPRESSION: Small to moderate amount of stool and air is seen throughout the colon with some air-filled loops of nondilated small bowel in a nonspecific, relatively unremarkable bowel gas pattern. [place] [facility] [place]
--- NOTE | 2017-07-11 13:22 | Emergency Department Report ---
General Adult HPI - General Chief complaint: Medical Emergency Stated complaint: cant eat or drink, abd pain,loose stools, Time Seen by Provider: 07/11/17 11:16 - History of Present Illness HPI narrative: 51-year-old gentleman with nausea and vomiting. Has had some diarrhea over the last 2-3 days. Unable to keep fluids down. Not sleeping well, feeling very tired and fatigued. Was lightheaded on standing today and was brought to the emergency department. - Related Data Previous Rx's Medication Instructions Recorded Omeprazole Magnesium [Prilosec Otc] 20 mg PO BID #60 tablet. 07/13/17 Allergies Allergy/AdvReac Type Severity Reaction Status Date / Time dog dander Allergy Verified 07/11/17 12:05 pollen extracts Allergy Verified 07/11/17 12:05 Review of Systems All systems: reviewed and negative except as stated PFSH Patient Stated Medical History Migraine Yes Hypertension Yes Asthma No Bronchitis No Chronic Obstructive Pulmonary No Disease (COPD) Pneumonia No Pulmonary Edema No Pulmonary Embolism No Sleep Apnea No Tuberculosis No Other Respiratory No Gastroesophageal Reflux Yes: poorly controlled Disease Hx Kidney Stones Yes Hx Renal Disease No Hx Urinary Tract Infection Yes Anemia Yes Other Musculoskeletal Yes: mood/personality changes after last surgery . vertigo Anesthesia Reactions Yes: questionable mood/personality changes after last anesthetic Other Yes: skin cancer removed x3 Depression Yes Eating Disorder Yes Post Traumatic Stress Disorder Yes: possible Clinic Medical History (This Medical Record has been edited. 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, vasectomy skin cancer resection face x 3 - Social History Smoking status: Never smoker Substance use type: does not use Physical Exam - Limitations Limitations: no limitations - General General appearance: alert, other (very week) - Normal Exams: Head:: Normocephalic without trauma Chest/Respirations:: Clear all [place], with good airflow, and symmetry bilaterally Cardiovascular:: Regular rate and rhythm, without murmur or gallop, Pulses 2+ all extremities, capillary refill, <2 seconds all extremities Abdomen:: no hepatosplenomegaly, masses or bruits noted Neurological:: Patient is alert, and oriented, cranial nerves, motor/sensory/ cerebellar, exams w/o gross deficits, to observation Psychiatric:: Patient exhibits, appropriate attention, emotion and affect - Abdominal Exam Abdominal exam: Present: tenderness (midepigastric), hyperactive bowel sounds. Absent: guarding, rebound, rigidity Course Vital Signs Temperature 98.2 F 07/11/17 11:07 Pulse Rate 69 07/11/17 11:07 Respiratory Rate 20 07/11/17 11:07 Blood Pressure 152/82 H 07/11/17 11:07 Pulse Oximetry 99 07/11/17 11:07 Temperature 96.8 F 07/13/17 08:00 Pulse Rate 62 07/13/17 16:00 Respiratory Rate 20 07/13/17 08:00 Blood Pressure 143/78 H 07/13/17 08:00 Pulse Oximetry 96 07/13/17 08:00 Medical Decision Making - MDM Narrative Medical decision making narrative: Patient likely with viral gastroenteritis. IV fluids started 1 L normal saline, Zofran 4 mg given IM. Lab and KUB obtained. KUB is nonspecific. Labs are reasonable except for potassium which is 2.9. Patient is significantly dehydrated, unable to maintain or rehydrate. Also unable to tolerate pills to increase potassium. Hospitalist graciously admitted the place in observation for IV fluid and potassium supplement. - Lab Data Result diagrams: 07/12/17 04:14 07/13/17 09:33 Lab Results 07/11/17 07/11/17 07/11/17 Range/Units 11:31 11:31 11:31 WBC 6.0 (4.5-11.0) T/MM3 RBC 4.07 L (4.50-5.90) M/MM3 Hgb 11.8 L (13.5-17.5) GM/DL Hct 35.5 L (41-53) % MCV 87.2 (80-100) UM3 MCH 29.0 (26-34) UUG MCHC 33.2 (31-37) GM/DL RDW Std Deviation 43.2 (36.9-50.2) FL Plt Count 196 (130-400) T/MM3 MPV 9.6 (9.4-12.4) UM3 Immature Gran % (Auto) 0.2 (0.0-0.5) % Neut % (Auto) 59.6 (33-66) % Lymph % (Auto) 32.4 (23-45) % Bertie % (Auto) 4.5 (0-9.0) % Eos % (Auto) 2.8 (0-4) % Baso % (Auto) 0.5 (0-2) % Neut # (Auto) 3.6 (1.8-7.7) T/MM3 Lymph # (Auto) 1.9 (1-4.8) T/MM3 Bertie # (Auto) 0.3 (0-0.8) T/MM3 Eos # (Auto) 0.2 (0-0.5) T/MM3 Baso # (Auto) 0.0 (0-0.2) T/MM3 Abs Immat Gran (auto) 0.01 (0.00-0.03) T/MM3 Turbidity < 20 (0-20) Sodium 148 H (134-144) MEQ/L Potassium 2.9 L* (3.6-5) MEQ/L Chloride 109 H (98-107) MEQ/L Carbon Dioxide 29 (22-30) MEQ/L Anion Gap 10 (5-15) MEQ/L BUN 6.0 L (9-20) MG/DL Creatinine 0.9 (0.8-1.5) MG/DL GFR Calculation 89 BUN/Creatinine Ratio 7 (6-26) RATIO Glucose 98 (75-110) MG/DL Calculated Osmolality 282 H (261-280) MOSM/KG Calcium 8.6 (8.4-10.2) MG/DL Magnesium (1.6-2.3) MG/DL Total Bilirubin 1.30 (0.20-1.30) MG/DL Icterus Index < 2 (0-7) AST 22 (17-59) U/L ALT 38 (21-72) U/L Alkaline Phosphatase 108 (38-126) U/L Troponin I < 0.012 (0-0.12) ng/ml Total Protein 6.3 (6.3-8.2) G/DL Albumin 3.2 L (3.5-5.0) G/DL Globulin 3.1 (2.4-3.6) G/DL Albumin/Globulin Ratio 1.0 L (1.1-2.2) RATIO Prealbumin (17.6-36.0) MG/DL Lipase 12 L (23-300) U/L TSH 1.15 (0.47-4.68) MIU/L Specimen Hemolysis < 15 < 15 (0-25) Ur Collection Type Urine Color (YELLOW) Urine Clarity Urine pH (5.0-8.0) Ur Specific [place] (1.015-1.025) Urine Protein (NEGATIVE) Urine Glucose (UA) (NEGATIVE) Urine Ketones (NEGATIVE) Urine Occult Blood (NEGATIVE) Urine Nitrate (NEGATIVE) Urine Bilirubin (NEGATIVE) Urine Urobilinogen (NORMAL) EU/DL Ur Leukocyte Esterase (NEGATIVE) Urinalysis Comment Stl Cyclospora species Stool Rotavirus A PCR Stool Adenovirus (PCR) Stool Astrovirus (PCR) Stool Campylobacter PCR Stl C.difficile Tox PCR Stool Cryptosporidium PCR Stl E.coli Shiga Toxins Stool E coli O157 PCR Stl Enterotoxigenic E PCR Stool EPEC (PCR) Stool EAEC (PCR) Stool Entamoeba (PCR) Stool Giardia Lamblia PCR Stool Salmonella PCR Stool Sapovirus (PCR) Stl P. shigelloides PCR Stl Shigella/EIEC PCR St Y.enterocolitica PCR Stool Vibrio (PCR) Stl Vibrio cholera PCR Stl Norovirus GI/GII PCR Specimen Comment Tests Not Done Reason Tests Not Done 07/11/17 07/11/17 07/11/17 Range/Units 11:31 11:31 18:29 WBC (4.5-11.0) T/MM3 RBC (4.50-5.90) M/MM3 Hgb (13.5-17.5) GM/DL Hct (41-53) % MCV (80-100) UM3 MCH (26-34) UUG MCHC (31-37) GM/DL RDW Std Deviation (36.9-50.2) FL Plt Count (130-400) T/MM3 MPV (9.4-12.4) UM3 Immature Gran % (Auto) (0.0-0.5) % Neut % (Auto) (33-66) % Lymph % (Auto) (23-45) % Bertie % (Auto) (0-9.0) % Eos % (Auto) (0-4) % Baso % (Auto) (0-2) % Neut # (Auto) (1.8-7.7) T/MM3 Lymph # (Auto) (1-4.8) T/MM3 Bertie # (Auto) (0-0.8) T/MM3 Eos # (Auto) (0-0.5) T/MM3 Baso # (Auto) (0-0.2) T/MM3 Abs Immat Gran (auto) (0.00-0.03) T/MM3 Turbidity (0-20) Sodium (134-144) MEQ/L Potassium 3.2 L (3.6-5) MEQ/L Chloride (98-107) MEQ/L Carbon Dioxide (22-30) MEQ/L Anion Gap (5-15) MEQ/L BUN (9-20) MG/DL Creatinine (0.8-1.5) MG/DL GFR Calculation BUN/Creatinine Ratio (6-26) RATIO Glucose (75-110) MG/DL Calculated Osmolality (261-280) MOSM/KG Calcium (8.4-10.2) MG/DL Magnesium 1.9 (1.6-2.3) MG/DL Total Bilirubin (0.20-1.30) MG/DL Icterus Index (0-7) AST (17-59) U/L ALT (21-72) U/L Alkaline Phosphatase (38-126) U/L Troponin I (0-0.12) ng/ml Total Protein (6.3-8.2) G/DL Albumin (3.5-5.0) G/DL Globulin (2.4-3.6) G/DL Albumin/Globulin Ratio (1.1-2.2) RATIO Prealbumin 14.3 L (17.6-36.0) MG/DL Lipase (23-300) U/L TSH (0.47-4.68) MIU/L Specimen Hemolysis < 15 (0-25) Ur Collection Type Urine Color (YELLOW) Urine Clarity Urine pH (5.0-8.0) Ur Specific [place] (1.015-1.025) Urine Protein (NEGATIVE) Urine Glucose (UA) (NEGATIVE) Urine Ketones (NEGATIVE) Urine Occult Blood (NEGATIVE) Urine Nitrate (NEGATIVE) Urine Bilirubin (NEGATIVE) Urine Urobilinogen (NORMAL) EU/DL Ur Leukocyte Esterase (NEGATIVE) Urinalysis Comment Stl Cyclospora species Stool Rotavirus A PCR Stool Adenovirus (PCR) Stool Astrovirus (PCR) Stool Campylobacter PCR Stl C.difficile Tox PCR Stool Cryptosporidium PCR Stl E.coli Shiga Toxins Stool E coli O157 PCR Stl Enterotoxigenic E PCR Stool EPEC (PCR) Stool EAEC (PCR) Stool Entamoeba (PCR) Stool Giardia Lamblia PCR Stool Salmonella PCR Stool Sapovirus (PCR) Stl P. shigelloides PCR Stl Shigella/EIEC PCR St Y.enterocolitica PCR Stool Vibrio (PCR) Stl Vibrio cholera PCR Stl Norovirus GI/GII PCR Specimen Comment Tests Not Done Reason Tests Not Done 07/12/17 07/12/17 07/12/17 Range/Units 04:14 04:14 04:14 WBC 4.5 (4.5-11.0) T/MM3 RBC 3.68 L (4.50-5.90) M/MM3 Hgb 10.3 L D (13.5-17.5) GM/DL Hct 32.3 L (41-53) % MCV 87.8 (80-100) UM3 MCH 28.0 (26-34) UUG MCHC 31.9 (31-37) GM/DL RDW Std Deviation 43.2 (36.9-50.2) FL Plt Count 167 (130-400) T/MM3 MPV 9.9 (9.4-12.4) UM3 Immature Gran % (Auto) 0.0 (0.0-0.5) % Neut % (Auto) 47.3 (33-66) % Lymph % (Auto) 39.9 (23-45) % Bertie % (Auto) 6.7 (0-9.0) % Eos % (Auto) 5.4 H (0-4) % Baso % (Auto) 0.7 (0-2) % Neut # (Auto) 2.1 (1.8-7.7) T/MM3 Lymph # (Auto) 1.8 (1-4.8) T/MM3 Bertie # (Auto) 0.3 (0-0.8) T/MM3 Eos # (Auto) 0.2 (0-0.5) T/MM3 Baso # (Auto) 0.0 (0-0.2) T/MM3 Abs Immat Gran (auto) 0.00 (0.00-0.03) T/MM3 Turbidity < 20 (0-20) Sodium 144 (134-144) MEQ/L Potassium 3.2 L (3.6-5) MEQ/L Chloride 110 H (98-107) MEQ/L Carbon Dioxide 28 (22-30) MEQ/L Anion Gap 6 (5-15) MEQ/L BUN 6.0 L (9-20) MG/DL Creatinine 0.9 (0.8-1.5) MG/DL GFR Calculation 89 BUN/Creatinine Ratio 7 (6-26) RATIO Glucose 86 (75-110) MG/DL Calculated Osmolality 274 (261-280) MOSM/KG Calcium 8.1 L (8.4-10.2) MG/DL Magnesium 2.0 (1.6-2.3) MG/DL Total Bilirubin (0.20-1.30) MG/DL Icterus Index < 2 (0-7) AST (17-59) U/L ALT (21-72) U/L Alkaline Phosphatase (38-126) U/L Troponin I < 0.012 (0-0.12) ng/ml Total Protein (6.3-8.2) G/DL Albumin (3.5-5.0) G/DL Globulin (2.4-3.6) G/DL Albumin/Globulin Ratio (1.1-2.2) RATIO Prealbumin (17.6-36.0) MG/DL Lipase (23-300) U/L TSH (0.47-4.68) MIU/L Specimen Hemolysis < 15 < 15 (0-25) Ur Collection Type Urine Color (YELLOW) Urine Clarity Urine pH (5.0-8.0) Ur Specific [place] (1.015-1.025) Urine Protein (NEGATIVE) Urine Glucose (UA) (NEGATIVE) Urine Ketones (NEGATIVE) Urine Occult Blood (NEGATIVE) Urine Nitrate (NEGATIVE) Urine Bilirubin (NEGATIVE) Urine Urobilinogen (NORMAL) EU/DL Ur Leukocyte Esterase (NEGATIVE) Urinalysis Comment Stl Cyclospora species Stool Rotavirus A PCR Stool Adenovirus (PCR) Stool Astrovirus (PCR) Stool Campylobacter PCR Stl C.difficile Tox PCR Stool Cryptosporidium PCR Stl E.coli Shiga Toxins Stool E coli O157 PCR Stl Enterotoxigenic E PCR Stool EPEC (PCR) Stool EAEC (PCR) Stool Entamoeba (PCR) Stool Giardia Lamblia PCR Stool Salmonella PCR Stool Sapovirus (PCR) Stl P. shigelloides PCR Stl Shigella/EIEC PCR St Y.enterocolitica PCR Stool Vibrio (PCR) Stl Vibrio cholera PCR Stl Norovirus GI/GII PCR Specimen Comment Tests Not Done Reason Tests Not Done 07/12/17 07/12/17 07/12/17 Range/Units 05:31 07:30 07:30 WBC (4.5-11.0) T/MM3 RBC (4.50-5.90) M/MM3 Hgb (13.5-17.5) GM/DL Hct (41-53) % MCV (80-100) UM3 MCH (26-34) UUG MCHC (31-37) GM/DL RDW Std Deviation (36.9-50.2) FL Plt Count (130-400) T/MM3 MPV (9.4-12.4) UM3 Immature Gran % (Auto) (0.0-0.5) % Neut % (Auto) (33-66) % Lymph % (Auto) (23-45) % Bertie % (Auto) (0-9.0) % Eos % (Auto) (0-4) % Baso % (Auto) (0-2) % Neut # (Auto) (1.8-7.7) T/MM3 Lymph # (Auto) (1-4.8) T/MM3 Bertie # (Auto) (0-0.8) T/MM3 Eos # (Auto) (0-0.5) T/MM3 Baso # (Auto) (0-0.2) T/MM3 Abs Immat Gran (auto) (0.00-0.03) T/MM3 Turbidity (0-20) Sodium (134-144) MEQ/L Potassium (3.6-5) MEQ/L Chloride (98-107) MEQ/L Carbon Dioxide (22-30) MEQ/L Anion Gap (5-15) MEQ/L BUN (9-20) MG/DL Creatinine (0.8-1.5) MG/DL GFR Calculation BUN/Creatinine Ratio (6-26) RATIO Glucose (75-110) MG/DL Calculated Osmolality (261-280) MOSM/KG Calcium (8.4-10.2) MG/DL Magnesium (1.6-2.3) MG/DL Total Bilirubin (0.20-1.30) MG/DL Icterus Index (0-7) AST (17-59) U/L ALT (21-72) U/L Alkaline Phosphatase (38-126) U/L Troponin I (0-0.12) ng/ml Total Protein (6.3-8.2) G/DL Albumin (3.5-5.0) G/DL Globulin (2.4-3.6) G/DL Albumin/Globulin Ratio (1.1-2.2) RATIO Prealbumin (17.6-36.0) MG/DL Lipase (23-300) U/L TSH (0.47-4.68) MIU/L Specimen Hemolysis (0-25) Ur Collection Type Urine, clean catch Urine Color Yellow (YELLOW) Urine Clarity Clear Urine pH 6.0 (5.0-8.0) Ur Specific [place] 1.020 (1.015-1.025) Urine Protein Negative (NEGATIVE) Urine Glucose (UA) Negative (NEGATIVE) Urine Ketones Negative (NEGATIVE) Urine Occult Blood Negative (NEGATIVE) Urine Nitrate Negative (NEGATIVE) Urine Bilirubin Negative (NEGATIVE) Urine Urobilinogen 0.2 (NORMAL) EU/DL Ur Leukocyte Esterase Negative (NEGATIVE) Urinalysis Comment Microscopic not ind. Stl Cyclospora species Cancelled Stool Rotavirus A PCR Cancelled Stool Adenovirus (PCR) Cancelled Stool Astrovirus (PCR) Cancelled Stool Campylobacter PCR Cancelled Stl C.difficile Tox PCR Cancelled Stool Cryptosporidium PCR Cancelled Stl E.coli Shiga Toxins Cancelled Stool E coli O157 PCR Cancelled Stl Enterotoxigenic E PCR Cancelled Stool EPEC (PCR) Cancelled Stool EAEC (PCR) Cancelled Stool Entamoeba (PCR) Cancelled Stool Giardia Lamblia PCR Cancelled Stool Salmonella PCR Cancelled Stool Sapovirus (PCR) Cancelled Stl P. shigelloides PCR Cancelled Stl Shigella/EIEC PCR Cancelled St Y.enterocolitica PCR Cancelled Stool Vibrio (PCR) Cancelled Stl Vibrio cholera PCR Cancelled Stl Norovirus GI/GII PCR Cancelled Specimen Comment Reorder as needed Tests Not Done Gi panel Reason Tests Not Done Stool, not diarrheic 07/12/17 07/12/17 07/12/17 Range/Units 14:52 14:52 20:05 WBC (4.5-11.0) T/MM3 RBC (4.50-5.90) M/MM3 Hgb (13.5-17.5) GM/DL Hct (41-53) % MCV (80-100) UM3 MCH (26-34) UUG MCHC (31-37) GM/DL RDW Std Deviation (36.9-50.2) FL Plt Count (130-400) T/MM3 MPV (9.4-12.4) UM3 Immature Gran % (Auto) (0.0-0.5) % Neut % (Auto) (33-66) % Lymph % (Auto) (23-45) % Bertie % (Auto) (0-9.0) % Eos % (Auto) (0-4) % Baso % (Auto) (0-2) % Neut # (Auto) (1.8-7.7) T/MM3 Lymph # (Auto) (1-4.8) T/MM3 Bertie # (Auto) (0-0.8) T/MM3 Eos # (Auto) (0-0.5) T/MM3 Baso # (Auto) (0-0.2) T/MM3 Abs Immat Gran (auto) (0.00-0.03) T/MM3 Turbidity < 20 (0-20) Sodium 142 (134-144) MEQ/L Potassium 3.5 L (3.6-5) MEQ/L Chloride 111 H (98-107) MEQ/L Carbon Dioxide 27 (22-30) MEQ/L Anion Gap 4 L (5-15) MEQ/L BUN 5.0 L (9-20) MG/DL Creatinine 0.9 (0.8-1.5) MG/DL GFR Calculation 89 BUN/Creatinine Ratio 6 (6-26) RATIO Glucose 91 (75-110) MG/DL Calculated Osmolality 270 (261-280) MOSM/KG Calcium 7.9 L (8.4-10.2) MG/DL Magnesium (1.6-2.3) MG/DL Total Bilirubin (0.20-1.30) MG/DL Icterus Index < 2 (0-7) AST (17-59) U/L ALT (21-72) U/L Alkaline Phosphatase (38-126) U/L Troponin I < 0.012 (0-0.12) ng/ml Total Protein (6.3-8.2) G/DL Albumin (3.5-5.0) G/DL Globulin (2.4-3.6) G/DL Albumin/Globulin Ratio (1.1-2.2) RATIO Prealbumin (17.6-36.0) MG/DL Lipase (23-300) U/L TSH (0.47-4.68) MIU/L Specimen Hemolysis < 15 < 15 (0-25) Ur Collection Type Urine Color (YELLOW) Urine Clarity Urine pH (5.0-8.0) Ur Specific [place] (1.015-1.025) Urine Protein (NEGATIVE) Urine Glucose (UA) (NEGATIVE) Urine Ketones (NEGATIVE) Urine Occult Blood (NEGATIVE) Urine Nitrate (NEGATIVE) Urine Bilirubin (NEGATIVE) Urine Urobilinogen (NORMAL) EU/DL Ur Leukocyte Esterase (NEGATIVE) Urinalysis Comment Stl Cyclospora species Negative Stool Rotavirus A PCR Negative Stool Adenovirus (PCR) Negative Stool Astrovirus (PCR) Negative Stool Campylobacter PCR Negative Stl C.difficile Tox PCR Negative Stool Cryptosporidium PCR Negative Stl E.coli Shiga Toxins Negative Stool E coli O157 PCR N/a Stl Enterotoxigenic E PCR Negative Stool EPEC (PCR) Detected A Stool EAEC (PCR) Negative Stool Entamoeba (PCR) Negative Stool Giardia Lamblia PCR Negative Stool Salmonella PCR Negative Stool Sapovirus (PCR) Negative Stl P. shigelloides PCR Negative Stl Shigella/EIEC PCR Negative St Y.enterocolitica PCR Negative Stool Vibrio (PCR) Negative Stl Vibrio cholera PCR Negative Stl Norovirus GI/GII PCR Negative Specimen Comment Tests Not Done Reason Tests Not Done 07/12/17 Range/Units 20:23 WBC (4.5-11.0) T/MM3 RBC (4.50-5.90) M/MM3 Hgb (13.5-17.5) GM/DL Hct (41-53) % MCV (80-100) UM3 MCH (26-34) UUG MCHC (31-37) GM/DL RDW Std Deviation (36.9-50.2) FL Plt Count (130-400) T/MM3 MPV (9.4-12.4) UM3 Immature Gran % (Auto) (0.0-0.5) % Neut % (Auto) (33-66) % Lymph % (Auto) (23-45) % Bertie % (Auto) (0-9.0) % Eos % (Auto) (0-4) % Baso % (Auto) (0-2) % Neut # (Auto) (1.8-7.7) T/MM3 Lymph # (Auto) (1-4.8) T/MM3 Bertie # (Auto) (0-0.8) T/MM3 Eos # (Auto) (0-0.5) T/MM3 Baso # (Auto) (0-0.2) T/MM3 Abs Immat Gran (auto) (0.00-0.03) T/MM3 Turbidity (0-20) Sodium (134-144) MEQ/L Potassium (3.6-5) MEQ/L Chloride (98-107) MEQ/L Carbon Dioxide (22-30) MEQ/L Anion Gap (5-15) MEQ/L BUN (9-20) MG/DL Creatinine (0.8-1.5) MG/DL GFR Calculation BUN/Creatinine Ratio (6-26) RATIO Glucose (75-110) MG/DL Calculated Osmolality (261-280) MOSM/KG Calcium (8.4-10.2) MG/DL Magnesium (1.6-2.3) MG/DL Total Bilirubin (0.20-1.30) MG/DL Icterus Index (0-7) AST (17-59) U/L ALT (21-72) U/L Alkaline Phosphatase (38-126) U/L Troponin I < 0.012 (0-0.12) ng/ml Total Protein (6.3-8.2) G/DL Albumin (3.5-5.0) G/DL Globulin (2.4-3.6) G/DL Albumin/Globulin Ratio (1.1-2.2) RATIO Prealbumin (17.6-36.0) MG/DL Lipase (23-300) U/L TSH (0.47-4.68) MIU/L Specimen Hemolysis < 15 (0-25) Ur Collection Type Urine Color (YELLOW) Urine Clarity Urine pH (5.0-8.0) Ur Specific [place] (1.015-1.025) Urine Protein (NEGATIVE) Urine Glucose (UA) (NEGATIVE) Urine Ketones (NEGATIVE) Urine Occult Blood (NEGATIVE) Urine Nitrate (NEGATIVE) Urine Bilirubin (NEGATIVE) Urine Urobilinogen (NORMAL) EU/DL Ur Leukocyte Esterase (NEGATIVE) Urinalysis Comment Stl Cyclospora species Stool Rotavirus A PCR Stool Adenovirus (PCR) Stool Astrovirus (PCR) Stool Campylobacter PCR Stl C.difficile Tox PCR Stool Cryptosporidium PCR Stl E.coli Shiga Toxins Stool E coli O157 PCR Stl Enterotoxigenic E PCR Stool EPEC (PCR) Stool EAEC (PCR) Stool Entamoeba (PCR) Stool Giardia Lamblia PCR Stool Salmonella PCR Stool Sapovirus (PCR) Stl P. shigelloides PCR Stl Shigella/EIEC PCR St Y.enterocolitica PCR Stool Vibrio (PCR) Stl Vibrio cholera PCR Stl Norovirus GI/GII PCR Specimen Comment Tests Not Done Reason Tests Not Done Disposition Clinical Impression: hypokalemia Disposition: 02 To [facility] Condition: Stable Time of Disposition: 12:22 - Seen By: physician
[2017-07-11] MEDS: POTASSIUM CHLORIDE PREMIX 10 MEQ/100 ML BAG IV SCH ×8 (13:39→23:08)
[2017-07-11] MEDS ORDERED: NS FLUSH BAG 500ml IV PRN (14:49)
--- NOTE | 2017-07-11 14:50 | History & Physical Report ---
<Gabrielle Short V - Last Filed: 07/11/17 18:32> History of Present Illness Date: 07/11/17 Chief complaint: hypokalemia, anorexia, weakness HPI: Mr Garcia is a 51 yr old male who presents to the ER today for evaluation of weakness and possible dehydration. Patient has had ongoing difficulty and anorexia since exploratory laparotomy, proximal gastrectomy, distal esophagectomy, truncal vagotomy, Heineke-Mikulicz pyloroplasty and cholecystectomy on 03/22/[address] Nahomy Cuellar at [facility] at [place], [place]. He has been under the primary care of Dr. Brian Wilson in [place]. He has also been working with Dr. Carr- psychiatrist at as well as Linda Root therapist at [place] for ongoing anorexia. It is felt that patient requires inpatient treatment for the psychological aspect of his anorexia. Patient has been receiving IV fluids outpatient setting at [facility], 3-5 times a week receiving 2 liters at a time. He takes in only minimal oral caloric intake a day, which generally results in vomiting or diarrhea. Today he presented to the ER for acute evaluation. The WBC count was found to be normal 6.0, hemoglobin 11.8, hematocrit 35.2, otherwise unremarkable. He is found to be elevated at 148, potassium 2.9, BUN 6, creatinine 0.9, calculated osmolality 282. Albumin is 3.2, pre-albumin 14.3, lipase 12, TSH 1.15, troponin negative. Given hypokalemia, dehydration and malnutrition. The hospitalist services were contacted and accepted patient for outpatient observation under the care of Dr. Dimas. Extensive discussion at the bedside with patient and - Neda. She verbalizes she does not know what to do for patient any longer. He has had a significant overall decline over the past 4 months to the point that he is unable to keep in any oral nutrition. She feels that his behaviors are psychological in nature and he agrees. Prior to examination while in the emergency room patient ate a candy bar. Patient is off all medication including Remeron and Zoloft and has significant depression. His affect is very flat and depressed during examination. This is all originated following the proximal gastrectomy in March 2017. Review of Systems All systems PM: 10-point ROS was reviewed, no additional remarkable complaints except - Constitutional Constitutional: Present: anorexia, fatigue, lethargy, malaise, weakness, weight loss - Gastrointestinal Gastrointestinal: Present: diarrhea, nausea, vomiting - Integumentary/Breasts Integumentary: Present: alopecia PFSH Anorexia- Since gastrectomy in March 2017. 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 Nahomy Cuellar at [place], [place]. (resection of benign tumor). -EGD/colonoscopy-2016 Dr. Garcias. -Vasectomy. -Skin cancer resection face x 3 - Social History Smoking status: Never smoker Substance use type: does not use Alcohol intake frequency: does not drink Housing: house Household members: spouse Current residence: Apartment/Private Home Social history: PCP Dr Brian Wilson Urgent Dr. Garcias Psychiatrist Dr. Carr- [place] Medications Home Medications Medication Instructions Recorded Confirmed Type No known Home medications [No home 07/11/17 07/11/17 History meds] Allergies Allergy/AdvReac Type Severity Reaction Status Date / Time dog dander Allergy Verified 07/11/17 12:05 pollen extracts Allergy Verified 07/11/17 12:05 Exam Vital Signs: Temperature 98.2 F 07/11/17 11:07 Pulse Rate 79 07/11/17 14:15 Respiratory Rate 21 07/11/17 14:15 Blood Pressure 129/79 07/11/17 14:00 Pulse Oximetry 96 07/11/17 14:15 - Constitutional Present: no acute distress, thin - Routine HEENT Exam Eye: Present: EOMI, PERRL ENT: Present: mucous membranes moist, dentition normal - Routine Respiratory Exam Present: CTA bilaterally. Absent: wheezes - Routine Cardiovascular Exam Present: RRR, S1, S2. Absent: murmur - Routine Abdominal Exam Present: soft, non distended. Absent: normoactive bowel sounds (hypoactive), tenderness - Routine Extremities Exam Present: normal capillary refill - Routine Skin Exam Present: intact, dry, warm - Routine Neurological Exam Present: alert, oriented X3, CN II-XII intact - Routine Psychiatric Exam Comments: Depressed, flat affect Results - Labs CBC & Chem 7: 07/11/17 11:31 07/11/17 11:31 Assessment and Plan (1) Hypernatremia Current visit: Yes Status: Acute (2) Hypokalemia Current visit: Yes Status: Acute (3) Malnutrition Current visit: Yes Status: Acute Assessment and Plan: Impression Hypokalemia- POA Hypernatremia- POA Anorexia with malnutrition- 9% weight loss in 1 month (97kg on 06/12/17, 88kg on 07/11/17) Mild protein malnutrition History of benign gastric tumor (GIST) with gastrectomy GERD Nephrolithiasis Depression Anemia Depression Plan Admit patient outpatient observation under care of Dr. Dimas for hyperkalemia, hypokalemia with severe anorexia and malnutrition Did review am malnutrition and weight loss patient has had a 9% weight loss in one month. BMI decreased to 26 from 29. IV fluid for hydration- 1/2 NS with 20 KCL at 100ml/hr. Given potassium IV bolus of 40 MEQ. Will allow patient to have a clear liquid diet. If he is able to tolerate this. Zofran available as needed for nausea. Obtain urinalysis, GI panel to rule out further pathogens. Telemetry to monitor cardiac dysrhythmias given electrolyte abnormalities SCDs to bilateral lower extremity for DVT prophylaxis Recheck CBC and BMP tomorrow morning to follow blood counts, renal function, electrolytes Did speak with PCP, Dr. Wilson in [place]. He has been working with patient in the outpatient setting to develop a treatment plan. Return primary care to Dr. Wilson at time of discharge. DVT Prophylaxis: SCD's Resuscitation Status: Full Code Hospital Course Summary Disclaimer: The visit summary below is not to be considered part of the above Progress Note. Hospital Course: 07/11/17-admission Impression Hypokalemia- POA Hypernatremia- POA Anorexia with malnutrition- 9% weight loss in 1 month (97kg on 06/12/17, 88kg on 07/11/17) Mild protein malnutrition History of benign gastric tumor (GIST) with gastrectomy GERD Nephrolithiasis Depression Anemia Depression Plan Admit patient outpatient observation under care of Dr. Dimas for hyperkalemia, hypokalemia with severe anorexia and malnutrition Did review am malnutrition and weight loss patient has had a 9% weight loss in one month. BMI decreased to 26 from 29. IV fluid for hydration- 1/2 NS with 20 KCL at 100ml/hr. Given potassium IV bolus of 40 MEQ. Will allow patient to have a clear liquid diet. If he is able to tolerate this. Zofran available as needed for nausea. Obtain urinalysis, GI panel to rule out further pathogens. Telemetry to monitor cardiac dysrhythmias given electrolyte abnormalities SCDs to bilateral lower extremity for DVT prophylaxis Recheck CBC and BMP tomorrow morning to follow blood counts, renal function, electrolytes Did speak with PCP, Dr. Wilson in [place]. He has been working with patient in the outpatient setting to develop a treatment plan. Return primary care to Dr. Wilson at time of discharge. <Jason Dimas - Last Filed: 07/11/17 19:44> History of Present Illness Date: 07/11/17 [facility] Patient Stated Medical History Migraine Yes Hypertension Yes Asthma No Bronchitis No Chronic Obstructive Pulmonary No Disease (COPD) Pneumonia No Pulmonary Edema No Pulmonary Embolism No Sleep Apnea No Tuberculosis No Other Respiratory No Gastroesophageal Reflux Yes: poorly controlled Disease Hx Kidney Stones Yes Anemia Yes Other Musculoskeletal Yes: mood/personality changes after last surgery . vertigo Anesthesia Reactions Yes: questionable mood/personality changes after last anesthetic Other Yes: skin cancer removed x3 Depression Yes Eating Disorder Yes Post Traumatic Stress Disorder Yes: possible Exam Vital Signs: Temperature 97.7 F 07/11/17 14:19 Pulse Rate 66 07/11/17 14:19 Respiratory Rate 18 07/11/17 14:19 Blood Pressure 137/60 07/11/17 14:19 Pulse Oximetry 97 07/11/17 14:19 Height/Weight/BMI: Height 1.83 m Weight 88.7 kg Body Mass Index 26.5 Results - Labs CBC & Chem 7: 07/11/17 11:31 07/11/17 18:29 Assessment and Plan (1) Hypernatremia Current visit: Yes Status: Acute (2) Hypokalemia Current visit: Yes Status: Acute (3) Malnutrition Current visit: Yes Status: Acute Assessment and Plan: Impression Hypokalemia- POA Hypernatremia- POA Anorexia with malnutrition- 9% weight loss in 1 month (97kg on 06/12/17, 88kg on 07/11/17) Mild protein malnutrition History of benign gastric tumor (GIST) with gastrectomy GERD Nephrolithiasis Depression Anemia Depression Have independently interviewed and examined pt. Chart reviewed. Case discussed with ED physician and my RN PHYSICIAN OFFICE. Care plan developed with my supervision; agree with above. Oral intake has been problematic. Pain and nausea with eating. Not wanting to eat. Has been getting intermittent IV fluids locally to help hydration. Lungs: clear CV: regular AB: soft nt/nd +BS Plan: OBS for correction of potassium and sodium. IV potassium boluses initiated - potassium increased to 3.2; will repeat IV potassium. Clear liquids as pt can. Zofran prn nausea. SCD for DVT prevention. Hospital Course Summary Disclaimer: The visit summary below is not to be considered part of the above Progress Note.
[2017-07-11] MEDS: 1/2 NS with KCL 20mEq 1,000 ML IV SCH (15:59)
[2017-07-12] MEDS: ONDANSETRON 4 MG/2 ML INJECTION IVP PRN ×2 (05:37→19:32)
[2017-07-12] MEDS: SALINE FLUSH 10ml SYRINGE IVF PRN ×2 (05:38→19:31)
[2017-07-12] MEDS ORDERED: GI COCKTAIL 30 ML PO ONE (08:24)
[2017-07-12] MEDS: 1/2 NS with KCL 20mEq 1,000 ML IV SCH ×2 (09:23→11:47)
[2017-07-12 09:43] VITALS: BMI 26.8
[2017-07-12] MEDS: ACETAMINOPHEN 500 MG TABLET PO SCH ×4 (10:22→22:45)
--- NOTE | 2017-07-12 10:32 | Progress Note ---
<Gabrielle Short V - Last Filed: 07/12/17 10:12> - Date 07/12/17 Subjective: Herve is seen today following a phone call from nursing staff reporting chest pain for the past 2 hours. He reports this is a common occurrence intermittently since his surgery in March. We discussed worsening symptoms with lying down. He reports it is often at night and when lying back. He denies feeling short of breath at time of discharge. Ate 25% of clear liquid diet. Objective Vital signs: Temperature 97.3 F 07/12/17 07:33 Pulse Rate 65 07/12/17 07:33 Respiratory Rate 14 07/12/17 07:33 Blood Pressure 144/90 H 07/12/17 07:33 Pulse Oximetry 97 07/12/17 07:33 Height/Weight/BMI: Height 1.83 m Weight 89.811 kg Body Mass Index 26.8 - Constitutional Present: no acute distress, well nourished, well developed - Routine HEENT Exam Eye: Present: EOMI ENT: Present: mucous membranes moist, dentition normal - Routine Respiratory Exam Present: CTA bilaterally. Absent: wheezes - Routine Cardiovascular Exam Present: RRR, S1, S2. Absent: murmur - Routine Abdominal Exam Present: soft, normoactive bowel sounds, non distended. Absent: tenderness - Routine Extremities Exam Present: normal capillary refill - Routine Back/Spine/Pelvis Exam Back/Spine: Present: full ROM - Routine Skin Exam Present: intact, dry, warm - Routine Neurological Exam Present: alert, oriented X3, CN II-XII intact - Routine Lymphatic Exam Lymphatic: Absent: adenopathy - Routine Psychiatric Exam Present: normal affect Results - Labs CBC & Chem 7: 07/12/17 04:14 07/12/17 04:14 Assessment and Plan (1) Hypernatremia Current visit: Yes Status: Acute (2) Hypokalemia Current visit: Yes Status: Acute (3) Malnutrition Current visit: Yes Status: Acute Assessment and Plan: Impression Hypokalemia- POA Hypernatremia- POA Anorexia with malnutrition- 9% weight loss in 1 month (97kg on 06/12/17, 88kg on 07/11/17) Mild protein malnutrition History of benign gastric tumor (GIST) with gastrectomy GERD Nephrolithiasis Depression Anemia Depression Plan Regarding chest pain did obtain a EKG and serial troponins. Have nursing staff try GI cocktail as this could be GI in nature given chronic vomiting and gastric reconstruction Potassium this morning is 3.2. Will given 40 MEQ IV bolus. Recheck BMP at 1500. Continue to encourage Oral intake. Will have staff offer nutritional supplementation TID if he will try. Will re-evaluate later this afternoon. Plan discussed with attending, Dr Enciso [facility] Course Summary Disclaimer: The visit summary below is not to be considered part of the above Progress Note. Hospital Course: 07/11/17-admission Impression Hypokalemia- POA Hypernatremia- POA Anorexia with malnutrition- 9% weight loss in 1 month (97kg on 06/12/17, 88kg on 07/11/17) Mild protein malnutrition History of benign gastric tumor (GIST) with gastrectomy GERD Nephrolithiasis Depression Anemia Depression Plan Admit patient outpatient observation under care of Dr. Dimas for hyperkalemia, hypokalemia with severe anorexia and malnutrition Did review am malnutrition and weight loss patient has had a 9% weight loss in one month. BMI decreased to 26 from 29. IV fluid for hydration- 1/2 NS with 20 KCL at 100ml/hr. Given potassium IV bolus of 40 MEQ. Will allow patient to have a clear liquid diet. If he is able to tolerate this. Zofran available as needed for nausea. Obtain urinalysis, GI panel to rule out further pathogens. Telemetry to monitor cardiac dysrhythmias given electrolyte abnormalities SCDs to bilateral lower extremity for DVT prophylaxis Recheck CBC and BMP tomorrow morning to follow blood counts, renal function, electrolytes Did speak with PCP, Dr. Wilson in [place]. He has been working with patient in the outpatient setting to develop a treatment plan. Return primary care to Dr. Wilson at time of discharge. 07/12/17 - Plan Regarding chest pain did obtain a EKG and serial troponins. Have nursing staff try GI cocktail as this could be GI in nature given chronic vomiting and gastric reconstruction Potassium this morning is 3.2. Will given 40 MEQ IV bolus. Recheck BMP at 1500. Continue to encourage Oral intake. Will have staff offer nutritional supplementation TID if he will try. Will re-evaluate later this afternoon. Plan discussed with attending, Dr Enciso <Daren Enciso IV - Last Filed: 07/12/17 13:35> - Date 07/12/17 Objective Vital signs: Temperature 97.3 F 07/12/17 07:33 Pulse Rate 69 07/12/17 08:00 Respiratory Rate 14 07/12/17 07:33 Blood Pressure 144/90 H 07/12/17 07:33 Pulse Oximetry 97 07/12/17 07:33 Height/Weight/BMI: Height 6 ft Weight 89.811 kg Body Mass Index 26.8 Results - Labs CBC & Chem 7: 07/12/17 04:14 07/12/17 04:14 Assessment and Plan (1) Hypernatremia Current visit: Yes Status: Acute (2) Hypokalemia Current visit: Yes Status: Acute (3) Malnutrition Current visit: Yes Status: Acute Assessment and Plan: I have independently interviewed and examined the patient. I have reviewed the medical record. The plan has been discussed and formulated with INSULATION PROFESSIONAL as above with the additions below. Patient says GI coctail did not help. He says sometimes chest pain is sharp, other times it feels like bricks on his chest. Pain is substernal without radiation. He denies soa with pain. He sometimes is diaphoretic. He says nausea is constant but not any different when he has chest pain. ECG: nsr, no ST changes CTAB RRR soft, mild tenderness LUQ, LLQ. +BS. no guarding or rebound no edema Troponin negative Replacing K. Patient unable to take po meds. Does not take Protonix at home. Add iv Pepcid here. Patient and express frustration with outpatient care, but understand he is in observation and may be dismissed soon. d/w grant manager who is looking into options, including possible f/u at Hospital Course Summary Disclaimer: The visit summary below is not to be considered part of the above Progress Note. Hospital Course: 07/12/17 13:34 Replacing K. Patient unable to take po meds. Does not take Protonix at home. Add iv Pepcid here. Patient and express frustration with outpatient care, but understand he is in observation and may be dismissed soon. d/w grant manager who is looking into options, including possible f/u at
[2017-07-12] MEDS: LIDOCAINE 1% INJ 10 MG, POTASSIUM CHLORIDE INJ 10 MEQ in NS 100 ML IV SCH ×4 (11:20→15:11)
[2017-07-12] MEDS ORDERED: INFLUENZA VAC QIV 2017-18 (Fluarix*)(>=3yo) 0.5ml IM ONE (14:00)
[2017-07-12] MEDS ORDERED: INFLUENZA VAC. INJ. ADMIN CHARGE INJ ONE (14:14)
[2017-07-12] MEDS: FAMOTIDINE PB 20 MG/50 ML BAG IV SCH (16:26)
[2017-07-12] MEDS: POTASSIUM CHLORIDE PREMIX 10 MEQ/100 ML BAG IV SCH ×4 (17:29→20:50)
[2017-07-13] MEDS: SALINE FLUSH 10ml SYRINGE IVF PRN (02:41)
[2017-07-13] MEDS: FAMOTIDINE PB 20 MG/50 ML BAG IV SCH ×2 (02:42→15:50)
[2017-07-13] MEDS: ACETAMINOPHEN 500 MG TABLET PO SCH ×4 (02:45→15:52)
[2017-07-13] MEDS: 1/2 NS with KCL 20mEq 1,000 ML IV SCH (05:25)
[2017-07-13] MEDS: ONDANSETRON 4 MG/2 ML INJECTION IVP PRN (07:55)
[2017-07-13 08:01] VITALS: BP 143/78; RESP 20; TEMP 96.8; O2SAT 96
--- NOTE | 2017-07-13 11:49 | Discharge Summary ---
Discharge Information Date of admission: 07/13/17 08:25 Attending Physician: Daren Enciso IV, MD Primary care physician: Alfa Wilson MD - Discharge Diagnosis (1) Hypernatremia Status: Acute (2) Hypokalemia Status: Acute (3) Malnutrition Status: Acute - Laboratory Labs: 07/13/17 09:33 History of Present Illness HPI: Mr Garcia is a 51 yr old male who presents to the ER today for evaluation of weakness and possible dehydration. Patient has had ongoing difficulty and anorexia since exploratory laparotomy, proximal gastrectomy, distal esophagectomy, truncal vagotomy, Heineke-Mikulicz pyloroplasty and cholecystectomy on 03/22/[address] Nahomy Cuellar at [facility] at [place], [place]. He has been under the primary care of Dr. Brian Wilson in [place]. He has also been working with Dr. Carr- psychiatrist at as well as Linda Root therapist at [place] for ongoing anorexia. It is felt that patient requires inpatient treatment for the psychological aspect of his anorexia. Patient has been receiving IV fluids outpatient setting at [facility], 3-5 times a week receiving 2 liters at a time. He takes in only minimal oral caloric intake a day, which generally results in vomiting or diarrhea. Today he presented to the ER for acute evaluation. The WBC count was found to be normal 6.0, hemoglobin 11.8, hematocrit 35.2, otherwise unremarkable. He is found to be elevated at 148, potassium 2.9, BUN 6, creatinine 0.9, calculated osmolality 282. Albumin is 3.2, pre-albumin 14.3, lipase 12, TSH 1.15, troponin negative. Given hypokalemia, dehydration and malnutrition. The hospitalist services were contacted and accepted patient for outpatient observation under the care of Dr. Dimas. Extensive discussion at the bedside with patient and - Neda. She verbalizes she does not know what to do for patient any longer. He has had a significant overall decline over the past 4 months to the point that he is unable to keep in any oral nutrition. She feels that his behaviors are psychological in nature and he agrees. Prior to examination while in the emergency room patient ate a candy bar. Patient is off all medication including Remeron and Zoloft and has significant depression. His affect is very flat and depressed during examination. This is all originated following the proximal gastrectomy in March 2017. Objective Vital signs: Temperature 96.8 F 07/13/17 08:00 Pulse Rate 67 07/13/17 08:00 Respiratory Rate 20 07/13/17 08:00 Blood Pressure 143/78 H 07/13/17 08:00 Pulse Oximetry 96 07/13/17 08:00 Rhythm: Normal Sinus Rhythm - Constitutional Present: well nourished, well developed - Routine HEENT Exam Eye: Present: EOMI ENT: Present: mucous membranes moist, dentition normal - Routine Respiratory Exam Present: CTA bilaterally. Absent: wheezes - Routine Cardiovascular Exam Present: RRR. Absent: murmur - Routine Abdominal Exam Present: soft, normoactive bowel sounds, non distended. Absent: tenderness - Routine Extremities Exam Present: normal capillary refill - Routine Skin Exam Present: dry, warm - Routine Neurological Exam Present: alert, oriented X3, CN II-XII intact - Routine Psychiatric Exam Present: normal affect Hospital Course This is a general summary of the patient's hospital course. For more details refer to the complete medical record. Hospital course: Patient was in outpatient observation status initially. Because of poor intake he had hypokalemia, hypernatremia. He continues to have malnutrition. Patient got IVF and iv KCl supplementation. He had some chest pain, but troponins were negative and ECG showed nsr with no ST changes. Patient has dry heaves with any oral intake. He is pursuing inpatient treatment for anorexia. He has been seen at [place]. Patient understands he needs to follow up with Dr. Rmoán Wlison and his surgeon Dr. Nahomy Cuellar. Patient's says information about his case has been sent to , and she will follow up on that. Time spent with patient: discharge greater than 30 minutes Discharge Plan - Discharge Disposition Disposition: Discharged Home, Self-Care *Condition: Stable *Reason For Visit: hypokalemia - Discharge Medications *Discharge Medications: New Omeprazole Magnesium [Prilosec Otc] 20 mg PO BID #60 tablet.dr - Discharge Packet/Instructions *Diet: as tolerated. Try supplements *Activity: as tolerated *Pain Management/Treatment: Tylenol as needed *Wound Care: NA *Expected Signs/Symptoms: increased weakness *Notify Physician if: unable to function *During Business Hours Contact: Dr. Wilson *After Business Hours Contact: call [facility] *Pending Lab/Results: No Pending Lab - Referrals/Follow Up *Referrals/Follow Up: Alfa Wilson MD [Family Provider] - 1 Week - Patient Handouts - Dismissal Complete Discharge Instructions are:: Complete
[2017-07-13] MEDS: POTASSIUM CHLORIDE PREMIX 10 MEQ/100 ML BAG IV SCH ×2 (12:17→13:33)
[2017-07-13 17:00] VITALS: PULSE 62
== END 2017-07-13 16:00 | disposition home or self-care (01) | DRG 641 ==
LOC: ED 11:05 → MED 11:05 → SUATTDRO 13:37 → MED 14:30
PROVIDERS: ADMIT Hospitalist; ATTEND Hospitalist